=== PATIENT | male | born 1955 | race Caucasian/White ===

== ENCOUNTER 2020-02-28 11:44 | Emergency (ER) | payer OTHER ==
[~2020-02-28] VITALS: Ht 187 cm; Wt 100.0 kg
--- NOTE | 2020-02-28 11:50 | ED Psychosocial ---
General Stated Complaint: SYNCOPE Source: patient History of Present Illness Date Seen by Provider: Feb 28, 2020 Time Seen by Provider: 11:50 Initial Comments 64-year-old male who was at the [facility]. Patient was at the [facility] and some labs drawn and get a flu shot. While getting his flu shot he had what appeared to be a vasovagal episode with syncope. EMS was called and brought him in with some IV fluids. Upon arrival patient then states this states that he is depressed, not eating or drinking well and is suicidal. Patient reports that he called the suicide hotline at the [facility] this morning. That he wants to go summary help. That he's been having depression and suicidal thoughts for years. When asked about a plan patient states he has a plan but won't expand on it. Patient denied any other physical complaints. Allergies and Home Medications Patient Home Medication List Home Medication List Reviewed: Yes Review of Systems Constitutional: No chills, No fever Respiratory: no symptoms reported Cardiovascular: no symptoms reported Gastrointestinal: no symptoms reported Genitourinary: no symptoms reported Musculoskeletal: no symptoms reported Skin: no symptoms reported Psychiatric/Neurological: See HPI Past Yjrgfnq-Bgqjos-Hhgnqi Hx Past Med/Social Hx: Reviewed Nursing Past Med/Soc Hx Physical Exam Vital Signs - First Documented 02/28/20 12:29 Temp 36.2 Pulse 76 Resp 18 B/P (MAP) 165/102 (123) Pulse Ox 98 O2 Delivery Room Air Capillary Refill : Height, Weight, BMI Height: '" Weight: lbs. oz. kg; BMI Method: General Appearance: no apparent distress HEENT: PERRL/EOMI, pharynx normal Neck: full range of motion, supple Respiratory: lungs clear, normal breath sounds, no respiratory distress, no accessory muscle use Cardiovascular: normal peripheral pulses, regular rate, rhythm Peripheral Pulses: 2+ Radial Pulses (R), 2+ Radial Pulses (L) Gastrointestinal: non tender, soft Neurologic/Psychiatric: alert, oriented x 3, depressed affect Appearance/Memory: appropriate appearance Behavior/Eye Contact: decreased rate of speech, other (withdrawn and depressed) Thoughts/Hallucinations: other (patient stating suicidal ideations) Skin: normal color, warm/dry Progress/Results/Core Measures Results/Orders Lab Results Laboratory Tests Test 02/28/20 11:53 02/28/20 11:55 Range/Units White Blood Count 11.1 H 4.3-11.0 10^3/uL Red Blood Count 3.69 L 4.35-5.85 10^6/uL Hemoglobin 8.2 L 13.3-17.7 G/DL Hematocrit 27 L 40-54 % Mean Corpuscular Volume 74 L 80-99 FL Mean Corpuscular Hemoglobin 22 L 25-34 PG Mean Corpuscular Hemoglobin Concent 30 L 32-36 G/DL Red Cell Distribution Width 16.2 H 10.0-14.5 % Platelet Count 283 130-400 10^3/uL Mean Platelet Volume 10.6 H 7.4-10.4 FL Immature Granulocyte % (Auto) 0 % Neutrophils (%) (Auto) 69 42-75 % Lymphocytes (%) (Auto) 16 12-44 % Monocytes (%) (Auto) 12 0-12 % Eosinophils (%) (Auto) 3 0-10 % Basophils (%) (Auto) 1 0-10 % Neutrophils # (Auto) 7.7 1.8-7.8 X 10^3 Lymphocytes # (Auto) 1.8 1.0-4.0 X 10^3 Monocytes # (Auto) 1.3 H 0.0-1.0 X 10^3 Eosinophils # (Auto) 0.3 0.0-0.3 10^3/uL Basophils # (Auto) 0.1 0.0-0.1 10^3/uL Immature Granulocyte # (Auto) 0.0 0.0-0.1 10^3/uL Sodium Level 137 135-145 MMOL/L Potassium Level 3.3 L 3.6-5.0 MMOL/L Chloride Level 102 98-107 MMOL/L Carbon Dioxide Level 21 21-32 MMOL/L Anion Gap 14 5-14 MMOL/L Blood Urea Nitrogen 17 7-18 MG/DL Creatinine 1.64 H 0.60-1.30 MG/DL Estimat Glomerular Filtration Rate 43 BUN/Creatinine Ratio 10 Glucose Level 136 H 70-105 MG/DL Calcium Level 8.4 L 8.5-10.1 MG/DL Corrected Calcium 8.6 8.5-10.1 MG/DL Total Bilirubin 0.3 0.1-1.0 MG/DL Aspartate Amino Transf (AST/SGOT) 9 5-34 U/L Alanine Aminotransferase (ALT/SGPT) 9 0-55 U/L Alkaline Phosphatase 56 40-136 U/L Total Protein 6.1 L 6.4-8.2 GM/DL Albumin 3.8 3.2-4.5 GM/DL Salicylates Level < 5.0 L 5.0-20.0 MG/DL Acetaminophen Level 14 10-30 UG/ML Serum Alcohol 57 H <10 MG/DL Urine Color YELLOW Urine Clarity CLEAR Urine pH 5.5 5-9 Urine Specific [place] 1.025 H 1.016-1.022 Urine Protein NEGATIVE NEGATIVE Urine Glucose (UA) NEGATIVE NEGATIVE Urine Ketones NEGATIVE NEGATIVE Urine Nitrite NEGATIVE NEGATIVE Urine Bilirubin NEGATIVE NEGATIVE Urine Urobilinogen 0.2 < = 1.0 MG/DL Urine Leukocyte Esterase NEGATIVE NEGATIVE Urine RBC (Auto) NEGATIVE NEGATIVE Urine RBC NONE /HPF Urine WBC NONE /HPF Urine Squamous Epithelial Cells RARE /HPF Urine Crystals NONE /LPF Urine Bacteria NONE /HPF Urine Casts NONE /LPF Urine Mucus NEGATIVE /LPF Urine Culture Indicated NO Urine Opiates Screen NEGATIVE NEGATIVE Urine Oxycodone Screen NEGATIVE NEGATIVE Urine Methadone Screen NEGATIVE NEGATIVE Urine Propoxyphene Screen NEGATIVE NEGATIVE Urine Barbiturates Screen NEGATIVE NEGATIVE Ur Tricyclic Antidepressants Screen NEGATIVE NEGATIVE Urine Phencyclidine Screen NEGATIVE NEGATIVE Urine Amphetamines Screen NEGATIVE NEGATIVE Urine Methamphetamines Screen NEGATIVE NEGATIVE Urine Benzodiazepines Screen NEGATIVE NEGATIVE Urine Cocaine Screen NEGATIVE NEGATIVE Urine Cannabinoids Screen POSITIVE H NEGATIVE My Orders Orders - TIPTON,DMITRIY L DO Ua Culture If Indicated (02/28/20 11:50) Cbc With Automated Diff (02/28/20 11:50) Comprehensive Metabolic Panel (02/28/20 11:50) Alcohol (02/28/20 11:50) Drug Screen Stat (Urine) (02/28/20 11:50) Acetaminophen (02/28/20 11:50) Salicylate (02/28/20 11:50) Ekg Tracing (02/28/20 11:50) Ed Iv/Invasive Line Start (02/28/20 11:50) Monitor-Rhythm Ecg Trace Only (02/28/20 11:50) Bh Status Checks/Observation Q15M (02/28/20 11:50) Ed Iv/Invasive Line Start (02/28/20 11:50) Chest 1 View Ap/Pa Only (02/28/20 11:54) Vital Signs/I&O 02/28/20 12:29 Temp 36.2 Pulse 76 Resp 18 B/P (MAP) 165/102 (123) Pulse Ox 98 O2 Delivery Room Air Progress Progress Note : Time: 14:45 Progress Note Patient was seen and evaluated by mental health. Patient was unaware that there were outpatient resources available. Patient and mental health provider developed a safety plan along with outpatient resources and appointments. Patient stable and will be discharged home. Patient's depression and thoughts of been going on and off for quite some time at least the last couple years so there is no acute plan or findings at this time. Initial ECG Impression Date: Feb 28, 2020 Initial ECG Impression Time: 11:56 Initial ECG Rate: 57 Initial ECG Rhythm: Normal Sinus Initial ECG Impression: Nonspecific Changes Departure Impression Primary Impression: Depression Qualified Codes: F33.9 - Major depressive disorder, recurrent, unspecified Additional Impression: Suicidal thoughts Disposition: 01 HOME, SELF-CARE Condition: Stable Departure-Patient Inst. Referrals: NO,LOCAL PHYSICIAN (PCP/Family) Primary Care Physician Patient Instructions: Depression, Suicide Prevention Add. Discharge Instructions: Please follow the plan you made with behavioral health for outpatient resources and therapy. Return to the ER as needed DMITRIY TIPTON DO Feb 28, 2020 11:50
[2020-02-28 12:04] LABS: BASOPHILS # (AUTO) 0.1 10^3/uL (0.0-0.1); BASOPHILS % (AUTO) 1 % (0-10); EOSINOPHILS # (AUTO) 0.3 10^3/uL (0.0-0.3); EOSINOPHILS % (AUTO) 3 % (0-10); HEMATOCRIT 27 % (40-54); HEMOGLOBIN 8.2 G/DL (13.3-17.7); LYMPHOCYTES # (AUTO) 1.8 X 10^3 (1.0-4.0); LYMPHOCYTES % (AUTO) 16 % (12-44); MEAN CORPUSCULAR HEMOGLOBIN 22 PG (25-34); MEAN CORPUSCULAR HGB CONC 30 G/DL (32-36); MEAN CORPUSCULAR VOLUME 74 FL (80-99); MEAN PLATELET VOLUME 10.6 FL (7.4-10.4); MONOCYTES # (AUTO) 1.3 X 10^3 (0.0-1.0); MONOCYTES % (AUTO) 12 % (0-12); NEUTROPHILS # (AUTO) 7.7 X 10^3 (1.8-7.8); NEUTROPHILS % (AUTO) 69 % (42-75); PLATELET COUNT 283 10^3/uL (130-400); WHITE BLOOD COUNT 11.1 10^3/uL (4.3-11.0)
[2020-02-28 12:25] LABS: BUN/CREATININE RATIO 10; CARBON DIOXIDE 21 MMOL/L (21-32); CHLORIDE 102 MMOL/L (98-107); CREATININE SERUM 1.64 MG/DL (0.60-1.30); GFR ESTIMATED 43; POTASSIUM 3.3 MMOL/L (3.6-5.0); SODIUM 137 MMOL/L (135-145)
[2020-02-28 12:26] LABS: ACETAMINOPHEN 14 UG/ML (10-30); ALANINE AMINOTRANSFERASE 9 U/L (0-55); ALBUMIN 3.8 GM/DL (3.2-4.5); ALKALINE PHOSPHATASE 56 U/L (40-136); BILIRUBIN,TOTAL 0.3 MG/DL (0.1-1.0); CALCIUM 8.4 MG/DL (8.5-10.1); GLUCOSE 136 MG/DL (70-105); SALICYLATE < 5.0 MG/DL (5.0-20.0); TOTAL PROTEIN 6.1 GM/DL (6.4-8.2)
[2020-02-28 12:51] LABS: BILIRUBIN,URINE NEGATIVE (NEGATIVE); CLARITY,URINE CLEAR; COLOR,URINE YELLOW; GLUCOSE, URINE (UA) NEGATIVE (NEGATIVE); KETONES,URINE NEGATIVE (NEGATIVE); LEUKOCYTE ESTERASE ,URINE NEGATIVE (NEGATIVE); NITRITE,URINE NEGATIVE (NEGATIVE); PH,URINE 5.5 (5-9); PROTEIN,URINE NEGATIVE (NEGATIVE); SQUAMOUS EPITHELIAL CELL,UR RARE /HPF
--- NOTE | 2020-02-28 12:58 | Diagnostic Imaging Report ---
EXAMINATION: Chest 1 view HISTORY: Syncope. COMPARISON: None available. FINDINGS: Heart size and pulmonary vasculature are normal. The lungs are clear without consolidation, pleural effusion, or pneumothorax. The osseous structures are intact. There is likely a moderate hiatal hernia overlying the central mediastinum. IMPRESSION: 1. No acute radiographic abnormality in the chest. 2. Hiatal hernia. Dictated by: Dictated on workstation # [id number]
[2020-02-28 13:03] LABS: AMPHETAMINE SCREEN, URINE NEGATIVE (NEGATIVE); BARBITURATE SCREEN URINE NEGATIVE (NEGATIVE); BENZODIAZEPINES SCREEN URINE NEGATIVE (NEGATIVE); CANNABINOID SCREEN, URINE POSITIVE (NEGATIVE); COCAINE SCREEN URINE NEGATIVE (NEGATIVE); METHADONE STAT NEGATIVE (NEGATIVE); METHAMPHETAMINE SCREEN URINE S NEGATIVE (NEGATIVE); OPIATE SCREEN URINE NEGATIVE (NEGATIVE); OXYCODONE STAT NEGATIVE (NEGATIVE); PROPOXYPHENE STAT NEGATIVE (NEGATIVE); TRICYCLIC ANTIDEPRESSANTS SCRE NEGATIVE (NEGATIVE)
--- NOTE | 2020-02-28 13:05 | NUR ---
MELONIE CALLED AT THIS TIME.
--- NOTE | 2020-02-28 13:33 | NUR ---
CECILIA FROM [facility] ON ZOOM MEETING AT THIS TIME WITH PTMeir
--- NOTE | 2020-02-28 14:45 | NUR ---
PER CECILIA WILHELM THE PT HAS AGREED UPON GOING HOME ON A SAFETY PLAN AND DOING OUTPATIENT CARE.
[2020-02-28 14:48] VITALS: BP 128/62
== END 2020-02-28 15:25 | disposition home or self-care (01) ==
LOC: EDUNIT# 11:44 → ER FS 11:46
DX: F32.9 Major depressive disorder, single episode, unspecified (principal); R45.851 Suicidal ideations
CPT/HCPCS: 36415; 71045; 80053; 80306; 81000; 85025; 93005; 93041; 99284; G0480 ×3; 80320; 80329

== ENCOUNTER 2021-01-08 19:01 | Day surgery (SDC) | payer OTHER ==
[~2021-01-08] VITALS: Ht 182.8 cm; Wt 90.3 kg
[2021-01-08 19:40] LABS: WHITE BLOOD COUNT 5.7 10^3/uL (4.3-11.0)
[2021-01-08 19:41] LABS: MEAN CORPUSCULAR HEMOGLOBIN 20 pg (25-34); MEAN CORPUSCULAR HGB CONC 28 g/dL (32-36); MEAN CORPUSCULAR VOLUME 70 fL (80-99); PLATELET COUNT 371 10^3/uL (130-400)
--- NOTE | 2021-01-08 19:41 | ED Abdominal Pain ---
General Chief Complaint: Rect Problems Stated Complaint: LOW BLOOD COUNT Source of Information: Patient, Family Exam Limitations: No Limitations History of Present Illness Date Seen by Provider: Jan 08, 2021 Time Seen by Provider: 19:25 Initial Comments 65-year-old male presents with concern of low blood count. Patient was called by his PCP today with hemoglobin of 6.4. He admits to having intermittent blood in his stool for the past 1 year, which got worse about 3 months ago where he had a lot of bleeding in a short amount of time. He has not sought medical care until now, admittedly. His last blood work was in October and he does not know the results. Medical care at the [place] [facility]. Denies any significant past medical history or taking any blood thinners. Denies abdominal pain, nausea vomiting. When he does have bleeding it is bright red and occasionally with clots, particular 3 months ago. Allergies and Home Medications Allergies Coded Allergies: No Known Drug Allergies (Unverified , 01/08/21) Patient Home Medication List Home Medication List Reviewed: Yes Review of Systems Review of Systems Constitutional: No fever; malaise, weakness EENTM: No Symptoms Reported Respiratory: Denies Cough; SOA With Exertion Cardiovascular: Denies Chest Pain, Denies Edema; Lightheadedness; Denies Palpitations Gastrointestinal: See HPI; Denies Abdominal Pain, Denies Constipated, Denies Diarrhea, Denies Poor Fluid Intake; Rectal Bleeding Musculoskeletal: No back pain, No joint pain Skin: change in color (pale) Psychiatric/Neurological: Denies Numbness, Denies Paresthesia; Weakness Past Trmmmol-Qtdjjc-Qliojx Hx Patient Social History Tobacco Use?: No Seasonal Allergies Seasonal Allergies: No Past Medical History Surgeries: Yes Orthopedic Respiratory: No Cardiac: Yes Hypertension Neurological: No Genitourinary: No Gastrointestinal: No Musculoskeletal: No Endocrine: No HEENT: No Cancer: No Psychosocial: Yes Anxiety, Depression Integumentary: No Blood Disorders: No Physical Exam Vital Signs Vital Signs - First Documented 01/08/21 01/08/21 19:05 21:24 Temp 36.6 Pulse 86 Resp 16 B/P (MAP) 137/72 (93) Pulse Ox 100 O2 Delivery Room Air Capillary Refill : Height/Weight/BMI Height: '" Weight: lbs. oz. kg; 28.00 BMI Method: General Appearance: WD/WN, no apparent distress HEENT: PERRL/EOMI, normal ENT inspection, pale conjunctivae (R), pale conjunctivae (L) Neck: non-tender, supple Respiratory: chest non-tender, lungs clear, normal breath sounds, no respiratory distress, no accessory muscle use Cardiovascular: regular rate, rhythm, no edema, no JVD Gastrointestinal: normal bowel sounds, non tender, soft Extremities: normal range of motion, non-tender, no pedal edema Neurologic/Psychiatric: no motor/sensory deficits, alert, normal mood/affect Skin: other (pale) Progress/Results/Core Measures Results/Orders Lab Results Laboratory Tests Test 01/08/21 19:21 Range/Units White Blood Count 5.7 4.3-11.0 10^3/uL Red Blood Count 3.14 L 4.30-5.52 10^6/uL Hemoglobin 6.2 *L 13.3-17.7 g/dL Hematocrit 22 L 40-54 % Mean Corpuscular Volume 70 L 80-99 fL Mean Corpuscular Hemoglobin 20 L 25-34 pg Mean Corpuscular Hemoglobin Concent 28 L 32-36 g/dL Red Cell Distribution Width 17.7 H 10.0-14.5 % Platelet Count 371 130-400 10^3/uL Mean Platelet Volume 10.6 9.0-12.2 fL Immature Granulocyte % (Auto) 0 % Neutrophils (%) (Auto) 62 42-75 % Lymphocytes (%) (Auto) 25 12-44 % Monocytes (%) (Auto) 8 0-12 % Eosinophils (%) (Auto) 4 0-10 % Basophils (%) (Auto) 1 0-10 % Neutrophils # (Auto) 3.5 1.8-7.8 X 10^3 Lymphocytes # (Auto) 1.5 1.0-4.0 X 10^3 Monocytes # (Auto) 0.5 0.0-1.0 X 10^3 Eosinophils # (Auto) 0.2 0.0-0.3 10^3/uL Basophils # (Auto) 0.1 0.0-0.1 10^3/uL Immature Granulocyte # (Auto) 0.0 0.0-0.1 10^3/uL Sodium Level 137 135-145 MMOL/L Potassium Level 3.4 L 3.6-5.0 MMOL/L Chloride Level 105 98-107 MMOL/L Carbon Dioxide Level 21 21-32 MMOL/L Anion Gap 11 5-14 MMOL/L Blood Urea Nitrogen 21 H 7-18 MG/DL Creatinine 1.82 H 0.60-1.30 MG/DL Estimat Glomerular Filtration Rate 38 BUN/Creatinine Ratio 12 Glucose Level 134 H 70-105 MG/DL Calcium Level 8.2 L 8.5-10.1 MG/DL Corrected Calcium 8.3 L 8.5-10.1 MG/DL Total Bilirubin 0.2 0.1-1.0 MG/DL Aspartate Amino Transf (AST/SGOT) 14 5-34 U/L Alanine Aminotransferase (ALT/SGPT) 10 0-55 U/L Alkaline Phosphatase 72 40-136 U/L Total Protein 6.6 6.4-8.2 GM/DL Albumin 3.9 3.2-4.5 GM/DL My Orders Orders - TURNERVENSTADRIANNA DOS SANTOS DO Ed Iv/Invasive Line Start (01/08/21 19:29) Cbc With Automated Diff (01/08/21 19:29) Comprehensive Metabolic Panel (01/08/21 19:29) Vital Signs/I&O 01/08/21 01/08/21 19:05 21:24 Temp 36.6 36.6 Pulse 86 Resp 16 84 B/P (MAP) 137/72 (93) 154/82 Pulse Ox 100 O2 Delivery Room Air Room Air Progress Progress Note : Progress Note patient with stable vitals and in no distress, but symptomatic w extreme fatigue....reason for seeking care today combined with results of critical lab values. Departure Communication (Admissions) Time/Spoke to Admitting Phy: 19:50 Called and spoke to Dr. Clark regarding patient presentation, past medical history and intermittent lower GI bleeding for 1 year without seeking medical attention until today Time/Spoke to Consulting Phy: 19:[address] Atkins regarding patient HPI, symptomatic anemia and lower GI bleed. Plans to keep patient on clear liquids, bowel prep tomorrow with planned colonoscopy in 2-day Impression Primary Impression: Symptomatic anemia Additional Impressions: Lower GI bleeding Renal insufficiency Disposition: 30 STILL A PATIENT Condition: Stable Admissions Decision to Admit Reason: Admit from ER (General) Decision to Admit/Date: Jan 08, 2021 Time/Decision to Admit Time: 19:25 Departure-Patient Inst. Referrals: GREGORIO COLLAZO (PCP/Family) Primary Care Physician ADRIANNA DUKES DO Jan 08, 2021 19:41
[2021-01-08 19:44] LABS: HEMOGLOBIN 6.2 g/dL (13.3-17.7)
[2021-01-08 19:45] LABS: BASOPHILS # (AUTO) 0.1 10^3/uL (0.0-0.1); BASOPHILS % (AUTO) 1 % (0-10); EOSINOPHILS # (AUTO) 0.2 10^3/uL (0.0-0.3); EOSINOPHILS % (AUTO) 4 % (0-10); HEMATOCRIT 22 % (40-54); LYMPHOCYTES # (AUTO) 1.5 X 10^3 (1.0-4.0); LYMPHOCYTES % (AUTO) 25 % (12-44); MEAN PLATELET VOLUME 10.6 fL (9.0-12.2); MONOCYTES # (AUTO) 0.5 X 10^3 (0.0-1.0); MONOCYTES % (AUTO) 8 % (0-12); NEUTROPHILS # (AUTO) 3.5 X 10^3 (1.8-7.8); NEUTROPHILS % (AUTO) 62 % (42-75)
[2021-01-08 19:50] LABS: CREATININE SERUM 1.82 MG/DL (0.60-1.30); POTASSIUM 3.4 MMOL/L (3.6-5.0)
[2021-01-08 19:51] LABS: ALBUMIN 3.9 GM/DL (3.2-4.5); BILIRUBIN,TOTAL 0.2 MG/DL (0.1-1.0); CALCIUM 8.2 MG/DL (8.5-10.1); TOTAL PROTEIN 6.6 GM/DL (6.4-8.2)
[2021-01-08] MEDS ORDERED: NS IV 500 ML 500 ML IV SCH (22:30)
[2021-01-09] VITALS (12 sets, daily range): BP systolic 160–185; BP diastolic 81–96
[2021-01-09 07:40] LABS: BASOPHILS # (AUTO) 0.1 10^3/uL (0.0-0.1); BASOPHILS % (AUTO) 1 % (0-10); EOSINOPHILS # (AUTO) 0.3 10^3/uL (0.0-0.3); EOSINOPHILS % (AUTO) 4 % (0-10); HEMATOCRIT 27 % (40-54); HEMOGLOBIN 7.9 g/dL (13.3-17.7); LYMPHOCYTES # (AUTO) 1.4 10^3/uL (1.0-4.0); LYMPHOCYTES % (AUTO) 20 % (12-44); MEAN CORPUSCULAR HEMOGLOBIN 21 pg (25-34); MEAN CORPUSCULAR HGB CONC 29 g/dL (32-36); MEAN CORPUSCULAR VOLUME 72 fL (80-99); MEAN PLATELET VOLUME 10.3 fL (9.0-12.2); MONOCYTES # (AUTO) 0.8 10^3/uL (0.0-1.0); MONOCYTES % (AUTO) 12 % (0-12); NEUTROPHILS # (AUTO) 4.2 10^3/uL (1.8-7.8); NEUTROPHILS % (AUTO) 63 % (42-75); PLATELET COUNT 366 10^3/uL (130-400); WHITE BLOOD COUNT 6.7 10^3/uL (4.3-11.0)
[2021-01-09 07:46] LABS: CALCIUM 8.2 MG/DL (8.5-10.1)
[2021-01-09 07:51] LABS: CREATININE SERUM 1.51 MG/DL (0.60-1.30)
--- NOTE | 2021-01-09 08:02 | Consultation - Surgery ---
MARGARETH CORREA MED STUDENT 01/09/21 0802: History of Present Illness History of Present Illness Patient Consulted On(yoel/time) 01/09/21 08:01 Date Seen by Provider: Jan 09, 2021 Time Seen by Provider: 08:00 History of Present Illness surgery consult for: symptomatic anemia and GI bleed HPI per ED: 65-year-old male presents with concern of low blood count. Patient was called by his PCP today with hemoglobin of 6.4. He admits to having intermittent blood in his stool for the past 1 year, which got worse about 3 months ago where he had a lot of bleeding in a short amount of time. He has not sought medical care until now, admittedly. His last blood work was in October and he does not know the results. Medical care at the [facility]. Denies any significant past medical history or taking any blood thinners. Denies abdominal pain, nausea vomiting. When he does have bleeding it is bright red and occasionally with clots, particular 3 months ago. today: Patient states he's been passing blood on and off for the past couple of years usually a couple of weeks between episodes. About a month ago, he noticed he had bloody diarrhea all weekend with every BM, about 6-8BM total. He states it resolved spontaneously. He saw a clinical office technician at [facility] who did some blood work and told the patient to come to the ED last night due to low Hgb. He was given 2 units blood in the ED last night. Before the transfusion, he complained of dizziness, lightheaded, SOB, fatigue, weakness, chills, blurred vision, and heart palpitations but has no symptoms this morning. He denies abdominal pain. His last bloody episode was a week and a half ago. He denies ever having previous colonoscopies. He denies seeing any physicians for his bleeding condition. He's had low iron before on labs and was given iron pills but was non compliant with medication because he "felt stubborn" and wouldn't take it. He last ate yesterday at 10AM. He is ambulatory and has burning with urination. Allergies and Home Medications Allergies Coded Allergies: No Known Drug Allergies (Unverified , 01/08/21) Past Cgmirgd-Dgjecl-Wcnssi Hx Patient Social History Drug of Choice: MARIJUANA IN PAST WEEK Smoking Status: Former Smoker (2-3 cigarettes per day for 10 yrs) Type Used: Cigarettes Recent Hopitalizations: No Alcohol Use?: Yes Substance type: Marijuana Have you traveled recently?: No Seasonal Allergies Seasonal Allergies: No Surgeries History of Surgeries: Yes Surgeries: Orthopedic (fingers, wrist, tibia, clavical (R), forearm), Vasectomy Respiratory History of Respiratory Disorde: No Cardiovascular History of Cardiac Disorders: Yes Cardiac Disorders: Hypertension Neurological History of Neurological Disord: No Genitourinary History of Genitourinary Disor: No Gastrointestinal History of Gastrointestinal Di: No Musculoskeletal History of Musculoskeletal Dis: No Endocrine History of Endocrine Disorders: No HEENT History of HEENT Disorders: No Cancer History of Cancer: No Psychosocial History of Psychiatric Problem: Yes Behavioral Health Disorders: Anxiety, Depression (previous hx of suicidal ideation w/ plan. no previous attempts. last episode was 8 mo ago) Integumentary History of Skin or Integumenta: No Blood Transfusions History of Blood Disorders: No Review of Systems-General Constitutional: No chills, No diaphoresis, No dizziness, No fever; malaise, weakness EENTM: blurred vision; No hearing loss, No ear pain Respiratory: No cough, No dyspnea on exertion; short of breath Cardiovascular: No chest pain, No palpitations Gastrointestinal: No abdominal pain; diarrhea, other (bright red blood per rectum) Genitourinary: dysuria; No frequency Musculoskeletal: No back pain; muscle cramps Skin: No change in color, No dryness Psychiatric/Neurological: Anxiety, Headache; Denies Numbness, Denies Paresthesia Physical Exam-General Problems Physical Exam Vital Signs Vital Signs - First Documented 01/08/21 01/08/21 19:05 21:24 Temp 36.6 Pulse 86 Resp 16 B/P (MAP) 137/72 (93) Pulse Ox 100 O2 Delivery Room Air Capillary Refill : Less Than 3 Seconds General Appearance: WD/WN, no apparent distress Eyes: Bilateral Eye PERRL, Bilateral Eye EOMI HEENT: PERRL/EOMI Neck: non-tender, full range of motion, supple Respiratory: chest non-tender, lungs clear, normal breath sounds, no respiratory distress, no accessory muscle use Cardiovascular: regular rate, rhythm, no murmur Gastrointestinal: normal bowel sounds, non tender, soft Extremities: non-tender, normal inspection, no pedal edema, no calf tenderness Neurologic/Psychiatric: no motor/sensory deficits, alert, oriented x 3 Skin: normal color, warm/dry Data Review Labs Laboratory Tests 01/08/21 19:21: White Blood Count 5.7, Red Blood Count 3.14L, Hemoglobin 6.2*L, Hematocrit 22L, Mean Corpuscular Volume 70L, Mean Corpuscular Hemoglobin 20L, Mean Corpuscular Hemoglobin Concent 28L, Red Cell Distribution Width 17.7H, Platelet Count 371, Mean Platelet Volume 10.6, Immature Granulocyte % (Auto) 0, Neutrophils (%) (Auto) 62, Lymphocytes (%) (Auto) 25, Monocytes (%) (Auto) 8, Eosinophils (%) (Auto) 4, Basophils (%) (Auto) 1, Neutrophils # (Auto) 3.5, Lymphocytes # (Auto) 1.5, Monocytes # (Auto) 0.5, Eosinophils # (Auto) 0.2, Basophils # (Auto) 0.1, Immature Granulocyte # (Auto) 0.0, Sodium Level 137, Potassium Level 3.4L, Chloride Level 105, Carbon Dioxide Level 21, Anion Gap 11, Blood Urea Nitrogen 21H, Creatinine 1.82H, Estimat Glomerular Filtration Rate 38, BUN/Creatinine Ratio 12, Glucose Level 134H, Calcium Level 8.2L, Corrected Calcium 8.3L, Total Bilirubin 0.2, Aspartate Amino Transf (AST/SGOT) 14, Alanine Aminotransferase (ALT/SGPT) 10, Alkaline Phosphatase 72, Total Protein 6.6, Albumin 3.9 01/09/21 07:25: White Blood Count 6.7, Red Blood Count 3.80L, Hemoglobin 7.9#L, Hematocrit 27L, Mean Corpuscular Volume 72L, Mean Corpuscular Hemoglobin 21L, Mean Corpuscular Hemoglobin Concent 29L, Red Cell Distribution Width 17.8H, Platelet Count 366, Mean Platelet Volume 10.3, Immature Granulocyte % (Auto) 0, Neutrophils (%) (Auto) 63, Lymphocytes (%) (Auto) 20, Monocytes (%) (Auto) 12, Eosinophils (%) (Auto) 4, Basophils (%) (Auto) 1, Neutrophils # (Auto) 4.2, Lymphocytes # (Auto) 1.4, Monocytes # (Auto) 0.8, Eosinophils # (Auto) 0.3, Basophils # (Auto) 0.1, Immature Granulocyte # (Auto) 0.0, Sodium Level 135, Potassium Level 4.0, Chloride Level 107, Carbon Dioxide Level 20L, Anion Gap 8, Blood Urea Nitrogen 18, Creatinine 1.51H, Estimat Glomerular Filtration Rate 47, BUN/Creatinine Ratio 12, Glucose Level 89, Calcium Level 8.2L Assessment/Plan Assessment/Plan Assessment/Plan GI bleed anemia - s/p 2 units transfusion Plan is to do bowel prep today and colonoscopy tomorrow. Monitor Hgb, if below 7, transfuse. Discussed colonoscopy with patient, he is agreeable. Will obtain consent and discuss procedure and risks. JOSE ATKINS DO 01/09/21 1039: History of Present Illness History of Present Illness Time Seen by Provider: 09:37 History of Present Illness Pt states he hs been bleeding "for a while now". This is the first time he has felt weak and tired. Allergies and Home Medications Allergies Coded Allergies: No Known Drug Allergies (Unverified , 01/08/21) Patient Home Medication List Home Medication List Reviewed: Yes Past Ktccnlw-Tquoqs-Kvuwcz Hx Patient Social History Smoking Status: Former Smoker (2-3 cigarettes per day for 10 yrs) Type Used: Cigarettes Surgeries History of Surgeries: Yes Surgeries: Orthopedic (fingers, wrist, tibia, clavical (R), forearm), Vasectomy Respiratory History of Respiratory Disorde: No Cardiovascular History of Cardiac Disorders: Yes Cardiac Disorders: Hypertension Neurological History of Neurological Disord: No Genitourinary History of Genitourinary Disor: No Gastrointestinal History of Gastrointestinal Di: No Musculoskeletal History of Musculoskeletal Dis: No Endocrine History of Endocrine Disorders: No HEENT History of HEENT Disorders: No Loss of Vision: Denies Hearing Impairment: Denies Cancer History of Cancer: No Psychosocial History of Psychiatric Problem: Yes Behavioral Health Disorders: Anxiety, Depression (previous hx of suicidal ideation w/ plan. no previous attempts. last episode was 8 mo ago) Family Medical History Significant Family History: Diabetes (Denies parents had DM), Other Conditions/Hx Review of Systems-General Constitutional: No chills, No diaphoresis, No dizziness, No fever; malaise, weakness EENTM: blurred vision; No hearing loss, No ear pain Respiratory: short of breath Cardiovascular: No chest pain, No palpitations Gastrointestinal: diarrhea, other (bright red blood per rectum) Genitourinary: dysuria; No frequency Musculoskeletal: No back pain; muscle cramps Skin: No change in color, No dryness Psychiatric/Neurological: Anxiety, Headache; Denies Numbness, Denies Paresthesia Physical Exam-General Problems Physical Exam General Appearance: WD/WN, no apparent distress Eyes: Bilateral Eye PERRL, Bilateral Eye EOMI HEENT: pharynx normal; No scleral icterus (R), No scleral icterus (L) Neck: non-tender, full range of motion, supple Respiratory: chest non-tender, lungs clear, normal breath sounds, no respiratory distress, no accessory muscle use Cardiovascular: regular rate, rhythm, no murmur Gastrointestinal: normal bowel sounds, non tender, soft, no organomegaly Rectal: deferred Extremities: non-tender, normal inspection, no pedal edema, no calf tenderness Neurologic/Psychiatric: no motor/sensory deficits, alert, oriented x 3 Skin: normal color, warm/dry Lymphatic: no adenopathy (neck, axilla or groin) Assessment/Plan Assessment/Plan Assessment/Plan GI bleed anemia - s/p 2 units transfusion Plan is to do bowel prep today and colonoscopy tomorrow. Monitor Hgb, if below 7, transfuse. Discussed colonoscopy with patient, he is agreeable. Will obtain consent and discuss procedure and risks Supervisory-Addendum Brief Verification & Attestation Participated in pt care: history, MDM, physical Personally performed: exam, history, MDM, supervision of care Care discussed with: Medical Student Procedures: n/a Verification and Attestation of Medical Student E/M Service A medical student performed and documented this service. I then reviewed and verified all information documented by the medical student and made modifications to such information, when appropriate. I personally performed a physical exam, medical decision making and then discussed any differences between the notes and made revisions as necessary to create one note. Jose Atkins , 01/09/21 , 10:38 MARGARETH CORREA MED STUDENT Jan 09, 2021 08:02 JOSE ATKINS DO Jan 09, 2021 10:39
[2021-01-09] MEDS ORDERED: TRZ50T PO (11:45)
[2021-01-09] MEDS ORDERED: CYAN-23 PO (11:45)
[2021-01-09] MEDS ORDERED: CITA20TA12 PO (11:45)
[2021-01-09] MEDS ORDERED: ASCO500T17 PO (11:45)
[2021-01-09] MEDS ORDERED: FERR324T4 PO (11:45)
[2021-01-09] MEDS ORDERED: ASPI-1238 PO (11:45)
[2021-01-09] MEDS ORDERED: LISI20TA26 PO (11:45)
[2021-01-09] MEDS ORDERED: MULT-166 PO (11:45)
[2021-01-09] MEDS ORDERED: CHOL20003 PO (11:45)
[2021-01-09] MEDS ORDERED: BISACODYL 5 MG (DULCOLAX) TABLET PO SCH ×2 (12:00→15:00)
--- NOTE | 2021-01-09 12:28 | History & Physical-Hospitalist ---
History of Present Illness HPI/Chief Complaint Bebo Viramontes is a 65-year-old male with past medical history of hypertension, iron deficiency anemia, who was found to have anemia on outpatient labs. He was instructed to go to the emergency room. He was found to have a hemoglobin of 6.2. He reports that he has been feeling lightheaded and dizzy. He reports feeling short of breath. He has been having intermittent blood in his stools for several months. He is supposed to be taking iron supplements but is not taking any of his medications. He has never had a colonoscopy. He denies fevers and chills. He is not feeling short of breath at this time. He is not having chest pain. He denies abdominal pain, nausea, vomiting, and diarrhea. He has not had any blood in his stools for about 10 days. Source: patient Exam Limitations: no limitations Date Seen 01/09/21 Time Seen by a Provider: 09:40 Attending Physician Mitra Clark Dana Arnp Referring Physician Date of Admission Jan 08, 2021 at 22:08 Home Medications & Allergies Home Medications Reviewed patient Home Medication Reconciliation performed by pharmacy medication reconciliations gameroom technician and/or nursing. Patients Allergies have been reviewed. Allergies Allergies Coded Allergies No Known Drug Allergies (Unverified01/08/21) Past Mlcvehk-Ybmtgo-Tyzunb Hx Patient Social History Tobacco Use?: No Smoking Status: Former Smoker (2-3 cigarettes per day for 10 yrs) Use of E-Cig and/or Vaping dev: No Substance use?: Yes Substance type: Marijuana Alcohol Use?: Yes Alcohol type: Hard Liquor Alcohol Frequency: Couple times a week Pt feels they are or have been: No Immunizations Up To Date First/Initial COVID19 Vaccinat: august 2020 Second COVID19 Vaccination Glenn: august 2020 Tetanus Booster (TDap): Unknown Seasonal Allergies Seasonal Allergies: No Current Status Advance Directives: No Communicates: Verbally Primary Language: Serbian Preferred Spoken Language: Serbian Is interpretation needed?: No Sensory deficits: Vision impairment Implanted or Applied Medical D: None Past Medical History Surgeries: Orthopedic (fingers, wrist, tibia, clavical (R), forearm), Vasectomy Hypertension Loss of Vision: Denies Hearing Impairment: Denies Anxiety, Depression (previous hx of suicidal ideation w/ plan. no previous attempts. last episode was 8 mo ago) Blood Disorders: No Family Medical History Diabetes (Denies parents had DM), Other Conditions/Hx Review of Systems Constitutional: dizziness, weakness EENTM: no symptoms reported Respiratory: short of breath Cardiovascular: no symptoms reported Gastrointestinal: other (Hematochezia) Genitourinary: no symptoms reported Musculoskeletal: no symptoms reported Skin: no symptoms reported Psychiatric/Neurological: No Symptoms Reported Physical Exam Physical Exam Vital Signs Vital Signs - First Documented 01/08/21 01/08/21 19:05 21:24 Temp 36.6 Pulse 86 Resp 16 B/P (MAP) 137/72 (93) Pulse Ox 100 O2 Delivery Room Air Capillary Refill : Less Than 3 Seconds Height, Weight, BMI Height: '" Weight: lbs. oz. kg; 27.02 BMI Method: General Appearance: No Apparent Distress, WD/WN HEENT: PERRL/EOMI, Pharynx Normal Neck: Normal Inspection, Supple Respiratory: Lungs Clear, Normal Breath Sounds, No Respiratory Distress Cardiovascular: Regular Rate, Rhythm, No Edema, No Murmur Gastrointestinal: Normal Bowel Sounds, Non Tender, Soft Extremity: Normal Inspection, Non Tender, No Pedal Edema Neurologic/Psychiatric: Alert, Oriented x3, No Motor/Sensory Deficits, Normal Mood/Affect Skin: Normal Color, Warm/Dry Results Results/Procedures Labs Laboratory Tests 01/08/21 19:21 01/09/21 07:25 Patient resulted labs reviewed. Assessment/Plan Admission Diagnosis Symptomatic anemia due to lower GI bleeding Admission Status: Observation Assessment and Plan Symptomatic anemia Lower GI bleeding Iron deficiency anemia Hgb 6.2 on arrival s/p 2 units PRBC Hgb improved to 7.9 Transfuse as needed to keep Hgb >7 No ongoing bleeding General surgery consulted, appreciate assistance Planning for colonoscopy prep today Colonoscopy scheduled [place] 01/10 HTN Begin Amlodipine Hydralazine as needed CKD3 Cr 1.5, monitor Avoid nephrotoxins as able DVT prophylaxis: held due to GI bleeding Diagnosis/Problems Diagnosis/Problems (1) Symptomatic anemia Status: Acute (2) Lower GI bleeding Status: Acute (3) HTN (hypertension) Status: Chronic Qualifiers: Hypertension type: primary hypertension Qualified Codes: I10 - Essential (primary) hypertension (4) CKD (chronic kidney disease), stage III Status: Chronic ARMANDO TINAJERO MD Jan 09, 2021 12:28
[2021-01-09] MEDS ORDERED: hydrALAZINE (APESOLINE) 20 MG/ML VIAL IV PRN (12:30)
[2021-01-09] MEDS ORDERED: amLODIPine 10 MG (NORVASC) TAB PO NR (12:30)
[2021-01-09] MEDS ORDERED: polyethylene glycoL Bowel Prep(MIRALAX) 238 GM PO SCH (18:00)
[2021-01-10] VITALS (10 sets, daily range): BP systolic 68–166; BP diastolic 35–93
[2021-01-10 07:30] LABS: HEMOGLOBIN 8.5 g/dL (13.3-17.7)
[2021-01-10 07:39] LABS: POTASSIUM 3.9 MMOL/L (3.6-5.0)
[2021-01-10 07:40] LABS: CALCIUM 8.8 MG/DL (8.5-10.1)
[2021-01-10 07:44] LABS: CREATININE SERUM 1.45 MG/DL (0.60-1.30)
--- NOTE | 2021-01-10 08:01 | Progress Note - Surgery ---
ALTHEA NIETO 01/10/21 0801: Subjective Date Seen by a Provider: Jan 10, 2021 Time Seen by a Provider: 07:20 Subjective/Events-last exam Patient reports that he had multiple bowel movements yesterday w/o any blood. He denies any abdominal pain, N/V, SOA, or sweats/chills over the last 24hrs. He h as been able to walk around without problems. Objective Exam Vital Signs Date Time Temp Pulse Resp B/P (MAP) Pulse Ox O2 Delivery O2 Flow Rate FiO2 01/10/21 04:00 35.1 74 20 166/93 (117) 100 Room Air 01/10/21 00:45 35.3 80 20 158/83 (108) 99 Room Air 01/09/21 20:00 36.6 83 20 178/96 (123) 100 Room Air 01/09/21 20:00 Room Air 01/09/21 15:58 37.0 78 16 168/87 (114) 98 Room Air 01/09/21 12:00 36.6 74 18 168/87 (114) 100 Room Air 01/09/21 08:00 36.9 71 20 168/83 (111) 98 Room Air 01/09/21 08:00 Room Air I & O 01/10/21 06:59 Intake Total 4220 ml Output Total 6 ml Balance 4214 ml Capillary Refill : Less Than 3 Seconds General Appearance: No Apparent Distress, WD/WN HEENT: PERRL/EOMI Neck: Normal Inspection, Supple Respiratory: Lungs Clear, Normal Breath Sounds, No Accessory Muscle Use, No Respiratory Distress Cardiovascular: Regular Rate, Rhythm, No Edema, No Murmur Gastrointestinal: normal bowel sounds, non tender, soft Extremity: Normal Inspection, Non Tender, No Pedal Edema Neurologic/Psychiatric: Alert, Oriented x3, Normal Mood/Affect Skin: Normal Color, Warm/Dry Results Lab Laboratory Tests 01/10/21 06:42: Hemoglobin 8.5L, Hematocrit 30L, Sodium Level 139, Potassium Level 3.9, Chloride Level 108H, Carbon Dioxide Level 21, Anion Gap 10, Blood Urea Nitrogen 10, Creatinine 1.45H, Estimat Glomerular Filtration Rate 49, BUN/Creatinine Ratio 7, Glucose Level 85, Calcium Level 8.8 Assessment/Plan Assessment/Plan Assessment/Plan GI bleed anemia - s/p 2 units transfusion Monitor Hgb, if below 7, transfuse. MARIA ALEJANDRA VELASQUEZ DO 01/10/21 1417: Subjective Subjective/Events-last exam Patient has no further bleeding per rectum. Patient tolerated prep. Patient feeling better today. He nausea vomiting fever sweats chills shortness of breath or chest pain at this time. Objective Exam General Appearance: No Apparent Distress, WD/WN HEENT: PERRL/EOMI Neck: Normal Inspection, Supple Respiratory: Chest Non Tender, No Accessory Muscle Use, No Respiratory Distress Cardiovascular: Regular Rate, Rhythm, No JVD Gastrointestinal: non tender, soft Extremity: Normal Inspection, Non Tender Neurologic/Psychiatric: Alert, Oriented x3, Normal Mood/Affect Skin: Warm/Dry, Pallor Lymphatic: No Adenopathy Assessment/Plan Assessment/Plan Assessment/Plan GI bleed lower, anemia Patient tolerated prep. For colonoscopy today for further evaluation. Supervisory-Addendum Brief Verification & Attestation Participated in pt care: history, MDM, physical Personally performed: exam, history, MDM, supervision of care Care discussed with: Medical Student Procedures: n/a Results interpretation: Verified all documentation Verification and Attestation of Medical Student E/M Service A medical student performed and documented this service in my presence. I reviewed and verified all information documented by the medical student and made modifications to such information, when appropriate. I personally performed the physical exam and medical decision making. Maria Alejandra Velasquez, Jan 10, 2021,08:16 ALTHEA NIETO Jan 10, 2021 08:01 MARIA ALEJANDRA VELASQUEZ DO Jan 10, 2021 14:17
[2021-01-10] MEDS ORDERED: amLODIPine 5 MG (NORVASC) TAB PO SCH (09:00)
[2021-01-10] MEDS ORDERED: LACTATED RINGERS 1,000 ML IV ONE (09:24)
[2021-01-10] MEDS ORDERED: MIDAZOLAM 2 MG/2 ML (VERSED) VIAL ONE (09:36)
[2021-01-10] MEDS ORDERED: PROPOFOL INJECTION 50 ML IV ONE ×2 (09:36→09:53)
[2021-01-10] MEDS ORDERED: LACTATED RINGERS 1,000 ML IV STA (09:55)
[2021-01-10] MEDS: lisINopril 20 MG (PRINIVIL) TABLET PO SCH ×3 (09:58→12:40)
[2021-01-10] MEDS: amLODIPine 10 MG (NORVASC) TAB PO SCH ×3 (09:58→12:40)
[2021-01-10] MEDS ORDERED: PHENYLEPHRINE 100 MCG/ML 10 ML (ANESTHESIA) SYR ONE (10:28)
[2021-01-10] MEDS ORDERED: LISI20TA26 PO (14:04)
[2021-01-10] MEDS ORDERED: AMLO-251 PO (14:04)
--- NOTE | 2021-01-10 14:10 | Discharge Summary ---
Discharge Summary Hospital Course Was the Problem List Reviewed?: Yes Problems/Dx: (1) Symptomatic anemia Status: Acute (2) Lower GI bleeding Status: Acute (3) HTN (hypertension) Status: Chronic Qualifiers: Qualified Codes: I10 - Essential (primary) hypertension (4) CKD (chronic kidney disease), stage III Status: Chronic (5) Rectal mass Status: Acute Hospital Course Date of Admission: Jan 08, 2021 at 22:08 Admission Diagnosis : Symptomatic anemia due to lower GI bleeding Family Physician/Provider: Meredith Camacho Date of Discharge: 01/10/21 Discharge Diagnosis: Rectal mass Hospital Course: Bebo Viramontes is a 65-year-old male with past medical history of hypertension, iron deficiency anemia, who was admitted with symptomatic anemia due to lower GI bleeding. He has been having issues with bleeding for several months. He underwent a colonoscopy which revealed a rectal mass. Biopsies were performed and were pending at the time of discharge. He will follow up with Dr. Velasquez in about a week to discuss the biopsy results. His course was compli cated by hypertension and his antihypertensive regimen was adjusted. He was discharged home in stable condition. Labs and Pending Lab Test: Laboratory Tests 01/10/21 06:42: Hemoglobin 8.5L, Hematocrit 30L, Sodium Level 139, Potassium Level 3.9, Chloride Level 108H, Carbon Dioxide Level 21, Anion Gap 10, Blood Urea Nitrogen 10, Creatinine 1.45H, Estimat Glomerular Filtration Rate 49, BUN/Creatinine Ratio 7, Glucose Level 85, Calcium Level 8.8 Home Meds Active Amlodipine Besylate 10 Mg Tablet 10 Mg PO DAILY 30 Days Lisinopril 20 Mg Tablet 20 Mg PO DAILY 30 Days Reported Vitamin B-12 (Cyanocobalamin (Vitamin B-12)) 1,000 Mcg Capsule 1,000 Mcg PO DAILY Aspirin EC (Aspirin) 81 Mg Tablet.dr 81 Mg PO DAILY Vitamin D3 (Cholecalciferol (Vitamin D3)) 50 Mcg Capsule 50 Mcg PO DAILY Trazodone HCl 50 Mg Tablet 50 Mg PO HS PRN Multivitamins with Minerals (Multivitamin with Minerals) 1 Each Tablet 1 Each PO DAILY Vitamin C (Ascorbic Acid) 500 Mg Tablet 500 Mg PO DAILY Ferrous Sulfate 324 Mg Tablet. 324 Mg PO DAILY Celexa (Citalopram Hydrobromide) 20 Mg Tablet 10 Mg PO DAILY TAKES OF A 20MG TAB Assessment/Pt Instructions Take medications as prescribed. Follow-up with Dr. Velasquez for your biopsy results. Return with worsening bleeding, lightheadedness, or if you feel like you are getting worse. Discharge Planning: <30 minutes discharge planning Discharge Instructions Discharge Diet: No Restrictions Activity as Tolerated: Yes Consultations General surgery Discharge Physical Examination Vital Signs Vital Signs Date Time Temp Pulse Resp B/P (MAP) Pulse Ox O2 Delivery O2 Flow Rate FiO2 01/10/21 12:32 36.0 60 16 157/92 (113) 100 Room Air 01/10/21 10:40 10 General Appearance: No Apparent Distress, WD/WN Respiratory: Lungs Clear, Normal Breath Sounds, No Respiratory Distress Cardiovascular: Regular Rate, Rhythm, No Edema, No Murmur Gastrointestinal: Normal Bowel Sounds, Non Tender, Soft Extremity: Normal Inspection, Non Tender, No Pedal Edema Skin: Warm/Dry, Pallor Neurologic/Psychiatric: Alert, Oriented x3, No Motor/Sensory Deficits, Normal Mood/Affect Allergies: Coded Allergies: No Known Drug Allergies (Unverified , 01/08/21) Discharge Summary Date of Admission Jan 08, 2021 at 22:08 Date of Discharge Discharge Date: Jan 10, 2021 Discharge Time: 14:09 Admission Diagnosis Symptomatic anemia due to lower GI bleeding Consults/Procedures Consulations General surgery Procedures Colonoscopy Discharge Diagnosis Rectal mass (1) Symptomatic anemia Status: Acute (2) Lower GI bleeding Status: Acute (3) HTN (hypertension) Status: Chronic Qualifiers: Qualified Codes: I10 - Essential (primary) hypertension (4) CKD (chronic kidney disease), stage III Status: Chronic (5) Rectal mass Status: Acute ARMANDO TINAJERO MD Jan 10, 2021 14:10
--- NOTE | 2021-01-10 14:16 | OPERATIVE REPORT ---
DATE OF SERVICE: 01/10/2021 PREOPERATIVE DIAGNOSES: Bright red blood per rectum, anemia. POSTOPERATIVE DIAGNOSES: Rectal polyp, rectosigmoid mass and splenic flexure polyp. PROCEDURE: Colonoscopy with snare polypectomy of splenic polyp. Cold biopsies of rectosigmoid mass with Nila inking and snare polypectomy, rectal polyp. SURGEON: Maria Alejandra Velasquez DO ANESTHESIA: Per STOCK LAYER. ESTIMATED BLOOD LOSS: Scant. COMPLICATIONS: None. INDICATIONS: The patient is a 65-year-old male who was having some bright red bleeding per rectum and was found to be anemic. He has never had colonoscopy performed. He understands risks and benefits of procedure and wished to proceed. Consent was signed in the chart. DESCRIPTION OF PROCEDURE: The patient was taken to endoscopy suite, placed in left lateral recumbent position. Timeout was performed. Digital rectal exam was performed. There were no palpable polyps, masses or ulcerations. Scope was inserted in the rectum and noting a rectal polyp. Scope was then continued to be advanced through the rectosigmoid junction, a large mass approximately 75% obstructing was present. The scope was able to be passed through this area without difficulty and continued to be advanced all the way to the cecum. Prep was adequate. Scope was then slowly retracted back. There were no polyps, masses or ulcerations in the cecum, ascending and transverse colon. In the splenic flexure, slightly larger polyp approximately 1 cm in diameter was present. Snare polypectomy was performed. This was able to be suctioned. The stalk was still bleeding. Therefore, an endoclip was placed on this area and hemostasis was achieved. The scope was then continued slowly retracted back. No polyps, masses or ulcerations within the remainder of the descending and sigmoid colon. At the rectosigmoid mass, multiple biopsies were obtained. Scope was then continuously retracted back, and snare polypectomy was performed on the other rectal polyp and obtained for specimen. Where the rectosigmoid mass was just distal to this area, a total of 3 mL of Nila ink was injected 1 mL in three different locations. Scope was retroflexed noting no other pathology. Scope was returned to its normal position, slowly withdrawn until completely removed, noting no other pathology. The patient tolerated procedure well without any complications, taken to recovery room in stable condition. RECOMMENDATIONS: The patient will follow up on biopsies. If do not demonstrate biopsies of cancer, would repeat biopsies. Further recommendations pending biopsy results. Job ID: [id number] DocumentID: [id number] Dictated Date: 01/10/2021 13:45:17 Business Editor Date: 01/10/2021 14:15:32 Dictated By: MARIA ALEJANDRA VELASQUEZ DO
--- NOTE | 2021-01-11 08:17 | Anesthesia-General Post-Op ---
MAC Patient Condition Mental Status/LOC: Same as Preop Cardiovascular: Satisfactory Nausea/Vomiting: Absent Respiratory: Satisfactory Pain: Controlled Complications: Absent Post Op Complications Complications None Follow Up Care/Instructions Patient Instructions None needed. Anesthesiology Discharge Order Discharge Order Patient is doing well, no complaints, stable vital signs, no apparent adverse anesthesia problems. No complications reported per nursing. TOM DONALD CRNA Jan 11, 2021 08:17
== END 2021-01-10 16:01 | disposition home or self-care (01) ==
LOC: EDUNIT# 19:01 → ER FS 19:02 → UNDOADMOB 22:08 → 4TH 22:08 → SDC 22:18 → UNDODISOB 01-10 16:01 → SDC 01-10 16:01
PROVIDERS: ATTEND Internal Medicine
DX: D12.7 Benign neoplasm of rectosigmoid junction (principal); D12.3 Benign neoplasm of transverse colon; I12.9 Hypertensive chronic kidney disease with stage 1 through stage 4 chronic kidney disease, or unspecified chronic kidney disease; N18.30 Chronic kidney disease, stage 3 unspecified; D50.0 Iron deficiency anemia secondary to blood loss (chronic); F32.9 Major depressive disorder, single episode, unspecified; F41.9 Anxiety disorder, unspecified; Z79.82 Long term (current) use of aspirin; Z79.899 Other long term (current) drug therapy; Z87.891 Personal history of nicotine dependence
CPT/HCPCS: 36415; 36430; 80048; 80053; 85014; 85018; 85025; 86850; 86900; 86901; 86920; G0378

== ENCOUNTER → 2021-01-23 | Outpatient (CLI) | payer OTHER ==
[~2021-01-23] VITALS: Ht 182.9 cm; Wt 93.1 kg
[~2021-01-23] MED LIST: AMLO-251 PO; ASCO500T17 PO; ASPI-1238 PO; CHOL20003 PO; CITA20TA12 PO; CITA20TA9 PO; CYAN-23 PO; FERR324T4 PO; LISI20TA26 PO; MULT-166 PO; TRZ50T PO
== END | disposition home or self-care (01) ==
LOC: PREOP 05:31
PROVIDERS: ATTEND Surgery
DX: Z01.818 Encounter for other preprocedural examination (principal)

== ENCOUNTER 2021-01-27 12:13 | Day surgery (SDC) | payer OTHER ==
[~2021-01-27] VITALS: Ht 183 cm; Wt 93.0 kg
[2021-01-27] MEDS ORDERED: LACTATED RINGERS 1,000 ML IV ONE (12:17)
[2021-01-27] MEDS ORDERED: FLEET ENEMA ADULT 1 EA BTL ONE (12:17)
[2021-01-27] MEDS ORDERED: LACTATED RINGERS 1,000 ML IV STA (12:21)
[2021-01-27 12:48] VITALS: BP 107/74
[2021-01-27] MEDS ORDERED: proPOfol 200 MG/20 ML (DIPRIVAN) VIAL IV ONE ×2 (13:47→14:05)
--- NOTE | 2021-01-27 14:19 | Progress Note-Post Operative ---
Post-Operative Progess Note Surgeon (s)/Used Equipment Sales Representative (s) Surgeon MARIA ALEJANDRA SINGER DO Used Equipment Sales Representative: na Pre-Operative Diagnosis rectal mass Post-Operative Diagnosis same Procedure & Operative Findings Date of Procedure 01/27/21 Procedure Performed/Findings flex sig c cold biopsies of rectal mass Anesthesia Type per harpoon engagement planning operator Estimated Blood Loss Estimated blood loss (mL): scant Specimens/Packing Specimens Removed rectal mass MARIA ALEJANDRA SINGER DO Jan 27, 2021 14:19
[2021-01-27 14:20] VITALS: BP 91/52
--- NOTE | 2021-01-27 14:20 | Anesthesia-General Post-Op ---
MAC Patient Condition Mental Status/LOC: Same as Preop Cardiovascular: Satisfactory Nausea/Vomiting: Absent Respiratory: Satisfactory Pain: Controlled Complications: Absent Post Op Complications Complications None Follow Up Care/Instructions Patient Instructions None needed. Anesthesiology Discharge Order Discharge Order Patient is doing well, no complaints, stable vital signs, no apparent adverse anesthesia problems. No complications reported per nursing. SAMEER COLLIER CRNA Jan 27, 2021 14:20
--- NOTE | 2021-01-27 14:21 | Discharge Inst-Simple/Standard ---
Discharge Inst-Standard Patient Instructions/Follow Up Plan of Care/Instructions/FU: 2 weeks Ron Activity as Tolerated: Yes Discharge Diet: Regular Diet MARIA ALEJANDRA SINGER DO Jan 27, 2021 14:21
[2021-01-27 14:25] VITALS: BP 112/64
[2021-01-27 14:55] VITALS: BP 124/73
[2021-01-27 15:10] VITALS: BP 124/73
--- NOTE | 2021-01-27 22:23 | OPERATIVE REPORT ---
DATE OF SERVICE: 01/27/2021 PREOPERATIVE DIAGNOSIS: Rectal mass. POSTOPERATIVE DIAGNOSIS: Rectal mass. PROCEDURE: Flexible sigmoidoscopy with cold biopsies of rectal mass. SURGEON: Maria Alejandra Velasquez DO ANESTHESIA: Per LIFE SKILLS INSTRUCTOR. ESTIMATED BLOOD LOSS: Scant. COMPLICATIONS: None. INDICATIONS: The patient is a 65-year-old male with rectal mass needing rebiopsy. The patient understands risks and benefits and wished to proceed. Consent was signed in the chart. DESCRIPTION OF PROCEDURE: The patient was taken to endoscopy suite, placed in left lateral recumbent position. Timeout was performed. Digital rectal exam was performed. No palpable polyps, masses or ulcerations. Scope was inserted in the rectum and some stool within the rectal vault. Lots of irrigation and suction performed. The scope was then advanced encountering the rectal mass, which tattoo markings were present. The scope was then passed through the area of the rectal mass into the sigmoid colon, which had normal appearance. Scope was then slowly retracted back. Multiple cold biopsies of the rectal mass near the rectosigmoid junction. Multiple cold biopsies were obtained. Scope was then slowly retracted back until completely removed. The patient tolerated procedure well without any complications, taken to recovery room in stable condition. RECOMMENDATIONS: The patient will follow up on pathology results in 2 weeks for further recommendations. Job ID: [id number] DocumentID: [id number] Dictated Date: 01/27/2021 14:24:44 Pharmacist Aide Date: 01/27/2021 22:22:24 Dictated By: MARIA ALEJANDRA VELASQUEZ DO
== END 2021-01-27 15:10 | disposition home or self-care (01) ==
LOC: ENDO 12:13
PROVIDERS: ATTEND Surgery
DX: C20 Malignant neoplasm of rectum (principal); I10 Essential (primary) hypertension; F32.A Depression, unspecified; F41.9 Anxiety disorder, unspecified; Z80.3 Family history of malignant neoplasm of breast; Z79.82 Long term (current) use of aspirin; Z79.899 Other long term (current) drug therapy

== ENCOUNTER → 2021-02-19 | Outpatient (CLI) | payer OTHER ==
[~2021-02-19] MED LIST changes: +GADOTERATE 0.5 MMOL/ML (CLARISCAN) 20 ML VIAL IV ONE
[2021-02-19 07:48] LABS: CREATININE SERUM 2.23 MG/DL (0.60-1.30)
--- NOTE | 2021-02-19 09:04 | Diagnostic Imaging Report ---
PROCEDURE: CT abdomen and pelvis without contrast. TECHNIQUE: Multiple contiguous axial images were obtained through the abdomen and pelvis without the use of intravenous contrast. Auto Exposure Controls were utilized during the CT exam to meet ALARA standards for radiation dose reduction. INDICATION: Rectal cancer. COMPARISON: No relevant comparison. FINDINGS: The unopacified liver appears nonfocal. The gallbladder and bile ducts are unremarkable. There is no adrenal mass. The nonfocal spleen is normal in size. The pancreas appears unremarkable on this exam. There is no appreciable abdominal/pelvic mesenteric or retroperitoneal lymphadenopathy. There is no bowel obstruction. There is tortuosity and redundancy of the unopacified and incompletely distended upper rectum and lower sigmoid colon which could obscure a mass. No perirectal or perisigmoidal infiltration. There is no intra or extra mesorectal adenopathy. The pelvic sidewalls are normal. The ileo-inguinal lymph node chains are normal. The urinary bladder is nearly empty. The prostate is unremarkable. No ascites, abscess, hematoma, or acute fluid collection. There is no suspicious lytic or sclerotic bony lesion. The aorta is nonaneurysmal. There is a large retrocardiac gastric hernia. IMPRESSION: 1. No findings to suggest metastatic disease at this limited nonenhanced study. Tortuosity and redundancy of the incompletely distended lower sigmoid and upper rectum limit evaluation of those regions. No evidence for lymphadenopathy, ascites, or obstructive features. 2. Large retrocardiac gastric hernia. Dictated by: Dictated on workstation # [id number]
--- NOTE | 2021-02-19 10:28 | Diagnostic Imaging Report ---
EXAMINATION: MRI pelvis with and without contrast. TECHNIQUE: Multiplanar, multisequence MRI of the pelvis was performed with and without contrast according to rectal staging protocol. HISTORY: 65-year-old male with newly diagnosed adenocarcinoma of the rectum. FINDINGS: Overall image quality: Adequate Tumor location and morphology: Tumor location: High rectum (10.1-15 cm) Distance of inferior border of tumor to anal verge: 12 cm. The tumor spans the anterior peritoneal reflection. Distance of inferior border of tumor to anorectal junction: 9-10 cm Craniocaudal length: 4-5 cm Circumferential location: Circumferential involvement from the 12:00 to 12 o'clock position. However, there is retraction with a central waist-like appearance in the mid aspect of the tumor, where there is asymmetric thickening at the 3 o'clock position. Morphology: (semi-)circumferential Mucinous: Possible. Within the left lateral wall, there is a T2 hyperintense cystic component of the tumor that measures approximately 1.0 x 1.0 cm. T-category: T3c (5-15 mm invasion beyond the muscularis propria) Structures invaded: The tumor definitely invades the muscularis propria. There are spiculations at the 3 o'clock position extending approximately 1 cm Involvement of sphincter complex: no CRM (for T3 only): Shortest distance to CRM: 10 mm Separate tumor deposit, suspicious lymph node or EMVI threating (<2 mm) or invading (<1 mm) the CRM: No N-category: N1a (1 abnormal lymph node) less than 5 mm with all of: irregular borders, heterogenous signal and round shape Suspicious mesorectal lymph nodes and/or tumor deposits: There is a single 5 mm lymph node which is round, heterogeneous in signal with some ill-definition of the margins (image 9, series 9). Number of suspicious lymph nodes: 1 Distance from tumor deposit to CRM: 2 mm Extramesorectal fascia lymph nodes: no Other findings: No concerning focal osseous lesions. IMPRESSION: 1. High rectal tumor at least invades the muscularis propria, with associated spiculations along its central aspect. These are suspicious for tumor invasion and therefore primary tumor staging is T3. 2. Single abnormal lymph node meets all criteria for regional metastasis, and therefore regional willem staging is N1. Dictated by: Dictated on workstation # [id number]
== END ==
LOC: RAD 08:15
PROVIDERS: ATTEND Surgery
DX: C20 Malignant neoplasm of rectum (principal); C77.5 Secondary and unspecified malignant neoplasm of intrapelvic lymph nodes; K46.9 Unspecified abdominal hernia without obstruction or gangrene
CPT/HCPCS: 36415; 72197; 74176; 82565; 84520

== ENCOUNTER → 2021-02-24 | Outpatient (CLI) | payer OTHER ==
[~2021-02-24] MED LIST changes: -GADOTERATE 0.5 MMOL/ML (CLARISCAN) 20 ML VIAL IV ONE
--- NOTE | 2021-02-24 10:34 | Diagnostic Imaging Report ---
INDICATION: Rectal cancer. TECHNIQUE: Multiple contiguous axial images were obtained through the chest without the use of intravenous contrast. Auto Exposure Controls were utilized during the CT exam to meet ALARA standards for radiation dose reduction. COMPARISON: There is no prior chest CT for comparison. FINDINGS: There are no enlarged mediastinal or hilar nodes. There are no enlarged axillary nodes or chest wall masses. There is a large hiatal hernia present. There is no pleural or pericardial fluid. Lung parenchymal windows demonstrate no pulmonary parenchymal masses or infiltrates. IMPRESSION: No evidence of metastatic disease in the chest. A large hiatal hernia is incidentally noted. Dictated by: Dictated on workstation # [id number]
== END ==
LOC: RAD 08:42
PROVIDERS: ATTEND Internal Medicine Hematology & Oncology
DX: C20 Malignant neoplasm of rectum (principal); K44.9 Diaphragmatic hernia without obstruction or gangrene
CPT/HCPCS: 71250

== ENCOUNTER 2021-03-03 05:39 | Outpatient (CLI) | payer OTHER ==
[~2021-03-03] VITALS: Ht 182.9 cm; Wt 92.2 kg
[2021-03-03] MEDS ORDERED: ZOLP5TAB PO (13:24)
[2021-03-03] MEDS ORDERED: LISI20TA26 PO (13:24)
[2021-03-03] MEDS ORDERED: AMLO-251 PO (13:36)
== END 2021-03-03 13:32 | disposition home or self-care (01) ==
LOC: PREOP 05:39
PROVIDERS: ATTEND Surgery
DX: Z01.818 Encounter for other preprocedural examination (principal)

== ENCOUNTER 2021-03-05 09:55 | Day surgery (SDC) | payer OTHER ==
[~2021-03-05] VITALS: Ht 182.9 cm; Wt 92.2 kg
[2021-03-05] VITALS (7 sets, daily range): BP systolic 83–159; BP diastolic 52–98
[~2021-03-05 09:55] MED LIST changes: +ZOLP5TAB PO; +ceFAZolin 2 GM IV Premixed 50 ML IV ONE
[2021-03-05] MEDS ORDERED: ceFAZolin 2 GM IV Premixed 50 ML ONE (10:19)
[2021-03-05] MEDS: LACTATED RINGERS 1,000 ML IV PRN ×2 (10:50→10:54)
--- NOTE | 2021-03-05 11:57 | Progress Note-Pre Operative ---
Pre-Operative Progress Note H&P Reviewed The H&P was reviewed, patient examined and no changes noted. Date Seen by Provider: Mar 05, 2021 Time Seen by Provider: 11:57 Date H&P Reviewed: Mar 05, 2021 Time H&P Reviewed: 11:57 Pre-Operative Diagnosis: rectal cancer MARIA ALEJANDRA SINGER DO Mar 05, 2021 11:57
[2021-03-05] MEDS ORDERED: 0.9% SODIUM CHLORIDE PF INJ 20 ML VIAL ONE (12:14)
[2021-03-05] MEDS ORDERED: LIDOCAINE/EPI 1%-1:100,000 (XYLOCAINE) 20ML ONE (12:15)
[2021-03-05] MEDS ORDERED: HEParin (CENTRAL IV FLUSH) 500 UNIT/5 ML SYR ONE (12:15)
[2021-03-05] MEDS ORDERED: fentaNYL INJ 100 MCG/2 ML AMP ONE (13:18)
[2021-03-05] MEDS ORDERED: LIDOCAINE PF 2% 5 ML (XYLOCAINE) VIAL ONE (13:18)
[2021-03-05] MEDS ORDERED: ONDANSETRON 4 MG/2 ML (SDV) Z0FRAN ONE (13:18)
[2021-03-05] MEDS ORDERED: proPOfol 200 MG/20 ML (DIPRIVAN) VIAL IV ONE (13:18)
[2021-03-05] MEDS ORDERED: MIDAZOLAM 2 MG/2 ML (VERSED) VIAL ONE (13:19)
[2021-03-05] MEDS ORDERED: PROPOFOL INJECTION 50 ML IV ONE (14:05)
--- NOTE | 2021-03-05 14:15 | Discharge Inst-Simple/Standard ---
Discharge Inst-Standard Patient Instructions/Follow Up Plan of Care/Instructions/FU: 2 weeks Ron Activity as Tolerated: No Discharge Diet: Regular Diet Other Inst to Patient Follow up Appt: Make appointment for 2 week. Instructions: No lifting greater than 10 pounds. No strenuous activity. May shower in 24 hours, no tub bath or soaking. Use incentive spirometer at home as directed. No Smoking Skin/Wound Care: You have special glue over your incision that will fall off on it's own. Ice pack on 15 min off 30 min and repeat for first 48 hours. This reduced swelling and discomfort. Symptoms to Report: Appetite Changes, Extremity Discoloration, Numbness/Tingling, Swelling Increased, Bleeding Excessive, Eyesight Changes, Pain Increased, Urine Color Change, Constipation(Persistent), Fever over 101 degree F, Pain/Pressure in chest, Urinating Difficulty, Cough Up/Vomit Blood, Heart Beat Irreg/Pounding, Pain/Pressure in jaw, Vaginal Bleeding Increase, Cramps in feet or legs, Lightheadedness, Pain/Pressure in shoulder, Diarrhea(Persistent), Memory Changes Suddenly, Questions/Concerns, Weight gain consecutive days, Dizziness/Fainting, Nausea/Vomiting, Shortness of Breath, Weight gain over 2 pounds If questions or concerns contact your physician Or seek help at emergency department. MARIA ALEJANDRA SINGER DO Mar 05, 2021 14:15
--- NOTE | 2021-03-05 14:16 | Progress Note-Post Operative ---
Post-Operative Progess Note Surgeon (s)/Transportation Planner (s) Surgeon MARIA ALEJANDRA SINGER DO Transportation Planner: na Pre-Operative Diagnosis rectal cancer Post-Operative Diagnosis same Procedure & Operative Findings Date of Procedure 03/05/21 Procedure Performed/Findings PROCEDURE: Right internal jugular port placement using ultrasound guidance. COMPLICATIONS: None. INDICATIONS: The patient is a 65 year old male with rectal cancer. Patient understands the risks and benefits of port placement and wished to proceed with the procedure. Consent was signed on the chart. PROCEDURE: The patient was taken to the operating suite, was prepped and draped in the sterile fashion. A surgical pause was performed. Ultrasound was used to locate the internal jugular vein. Once located anesthetic was infiltrated above it. Using micro-access kit, the right internal vein was accessed. Dark nonpulsatile blood was withdrawn. The wire was inserted. Fluoroscopy assured proper placement. The needle was removed. The micro-access dilator was advanced over the wire and the wire was removed. The regular wire was inserted and fluoroscopy assured proper placement. The wire was then secured. Local anesthetic was used to anesthetize from the neck for tunneling down to the right chest and for pocket creation. A 15 blade scalpel was used to make an incision over the right chest. Cautery was used to dissect down to the pectoral fascia. A pocket was created with blunt dissection. The dilator sheath was then advanced over the wire under fluoroscopy and the dilator and wire were removed. The Groshong catheter was inserted through the sheath and the sheath was then removed. The Groshong wire was removed. The catheter was then tunneled to the right chest pocket. Fluoroscopy was used to cut to length and this was then attached to the port which was then placed within the pocket. The port was then accessed without difficulty. It was then flushed with saline and then heparin. The subcutaneous tissues were then reapproximated using 3-0 Vicryl. The areas were then washed and dried. Skin Affix was placed over incision. The insertion point of the neck Skin Affix was placed over the incision. The patient tolerated the procedure well without complication and was taken to recovery room in stable condition. Chest x-ray is pending. Anesthesia Type mac c local Estimated Blood Loss Estimated blood loss (mL): minimal Specimens/Packing Specimens Removed none MARIA ALEJANDRA SINGER DO Mar 05, 2021 14:16
--- NOTE | 2021-03-05 14:19 | Anesthesia-General Post-Op ---
MAC Patient Condition Mental Status/LOC: Same as Preop Cardiovascular: Satisfactory Nausea/Vomiting: Absent Respiratory: Satisfactory Pain: Controlled Complications: Absent Post Op Complications Complications None Follow Up Care/Instructions Patient Instructions None needed. Anesthesiology Discharge Order Discharge Order Patient is doing well, no complaints, stable vital signs, no apparent adverse anesthesia problems. No complications reported per nursing. SAMEER COLLIER CRNA Mar 05, 2021 14:19
[2021-03-05] MEDS ORDERED: ONDANSETRON 4 MG/2 ML (SDV) Z0FRAN IVP PRN (14:30)
[2021-03-05] MEDS ORDERED: MEPERIDINE (DEMEROL) INJ 50 MG/ML IVP ONE (14:30)
[2021-03-05] MEDS ORDERED: morphine INJ 10 MG/ML 1ML (SYR OR VIAL) IVP ONE (14:30)
--- NOTE | 2021-03-05 14:51 | Diagnostic Imaging Report ---
INDICATION: Postop Port-A-Cath placement Frontal chest obtained at 0242 p.m. and compared to 02/28/2020 Heart is normal in size. There is a prominent hiatal hernia. There is no focal infiltrate or pneumothorax or pleural fluid. Port-A-Cath is seen over the right chest with catheter tip overlying the upper SVC. IMPRESSION: No focal infiltrate or pneumothorax or pleural fluid. Prominent hiatal hernia. Dictated by: Dictated on workstation # [id number]
--- NOTE | 2021-03-05 16:33 | Diagnostic Imaging Report ---
INDICATION: Port-A-Cath placement. Intraoperative fluoroscopic views obtained during Port-A-Cath placement in surgery. Two views are obtained. 21.6 seconds of fluoroscopy time was used. Fluoroscopic views demonstrate guidewire in place from the right IJ. Port-A-Cath is seen over the right chest with catheter entering the right internal jugular vein and catheter tip overlying the SVC. The study is otherwise limited. IMPRESSION: Intraoperative fluoroscopic views obtained during Port-A-Cath placement as above. Dictated by: Dictated on workstation # [id number]
== END 2021-03-05 15:30 | disposition home or self-care (01) ==
LOC: SDC 09:55
PROVIDERS: ATTEND Surgery
DX: C20 Malignant neoplasm of rectum (principal); I10 Essential (primary) hypertension; R09.89 Other specified symptoms and signs involving the circulatory and respiratory systems; Z87.891 Personal history of nicotine dependence; Z79.899 Other long term (current) drug therapy; Z11.2 Encounter for screening for other bacterial diseases
CPT/HCPCS: 71045; 76000; 87081

== ENCOUNTER 2021-04-23 13:21 | Outpatient (RCR) | payer OTHER ==
[2021-02-20 12:02] LABS: BASOPHILS # (AUTO) 0.1 10^3/uL (0.0-0.1); BASOPHILS % (AUTO) 2 % (0-10); EOSINOPHILS # (AUTO) 0.2 10^3/uL (0.0-0.3); EOSINOPHILS % (AUTO) 5 % (0-10); HEMATOCRIT 27 % (40-54); HEMOGLOBIN 7.7 g/dL (13.3-17.7); LYMPHOCYTES # (AUTO) 0.9 10^3/uL (1.0-4.0); LYMPHOCYTES % (AUTO) 19 % (12-44); MEAN CORPUSCULAR HEMOGLOBIN 20 pg (25-34); MEAN CORPUSCULAR HGB CONC 28 g/dL (32-36); MEAN CORPUSCULAR VOLUME 70 fL (80-99); MEAN PLATELET VOLUME 10.2 fL (9.0-12.2); MONOCYTES # (AUTO) 0.5 10^3/uL (0.0-1.0); MONOCYTES % (AUTO) 10 % (0-12); NEUTROPHILS # (AUTO) 2.9 10^3/uL (1.8-7.8); NEUTROPHILS % (AUTO) 64 % (42-75); PLATELET COUNT 411 10^3/uL (130-400); WHITE BLOOD COUNT 4.5 10^3/uL (4.3-11.0)
[2021-02-20 12:16] LABS: BILIRUBIN,TOTAL 0.3 MG/DL (0.1-1.0); CREATININE SERUM 2.19 MG/DL (0.60-1.30); TOTAL PROTEIN 6.9 GM/DL (6.4-8.2)
[2021-03-09 10:41] LABS: HEMATOCRIT 27 % (40-54); HEMOGLOBIN 7.7 g/dL (13.3-17.7); MEAN CORPUSCULAR HEMOGLOBIN 20 pg (25-34); MEAN CORPUSCULAR HGB CONC 29 g/dL (32-36); MEAN CORPUSCULAR VOLUME 68 fL (80-99); MEAN PLATELET VOLUME 9.9 fL (9.0-12.2); PLATELET COUNT 437 10^3/uL (130-400); WHITE BLOOD COUNT 6.7 10^3/uL (4.3-11.0)
[2021-03-25 14:24] LABS: BASOPHILS % (AUTO) 1 % (0-10); EOSINOPHILS # (AUTO) 0.1 10^3/uL (0.0-0.3); EOSINOPHILS % (AUTO) 3 % (0-10); HEMATOCRIT 35 % (40-54); HEMOGLOBIN 10.1 g/dL (13.3-17.7); LYMPHOCYTES # (AUTO) 0.9 10^3/uL (1.0-4.0); LYMPHOCYTES % (AUTO) 19 % (12-44); MEAN CORPUSCULAR HEMOGLOBIN 21 pg (25-34); MEAN CORPUSCULAR HGB CONC 29 g/dL (32-36); MEAN CORPUSCULAR VOLUME 73 fL (80-99); MEAN PLATELET VOLUME 9.7 fL (9.0-12.2); MONOCYTES # (AUTO) 0.4 10^3/uL (0.0-1.0); MONOCYTES % (AUTO) 9 % (0-12); NEUTROPHILS # (AUTO) 3.2 10^3/uL (1.8-7.8); NEUTROPHILS % (AUTO) 69 % (42-75); PLATELET COUNT 320 10^3/uL (130-400); WHITE BLOOD COUNT 4.7 10^3/uL (4.3-11.0)
[2021-03-25 14:44] LABS: CALCIUM 8.8 MG/DL (8.5-10.1); CREATININE SERUM 2.31 MG/DL (0.60-1.30); POTASSIUM 4.8 MMOL/L (3.6-5.0)
[2021-03-30 13:54] LABS: BASOPHILS % (AUTO) 1 % (0-10); EOSINOPHILS # (AUTO) 0.2 10^3/uL (0.0-0.3); EOSINOPHILS % (AUTO) 4 % (0-10); HEMATOCRIT 38 % (40-54); HEMOGLOBIN 10.9 g/dL (13.3-17.7); LYMPHOCYTES # (AUTO) 0.7 10^3/uL (1.0-4.0); LYMPHOCYTES % (AUTO) 19 % (12-44); MEAN CORPUSCULAR HEMOGLOBIN 22 pg (25-34); MEAN CORPUSCULAR HGB CONC 29 g/dL (32-36); MEAN CORPUSCULAR VOLUME 76 fL (80-99); MEAN PLATELET VOLUME 9.7 fL (9.0-12.2); MONOCYTES # (AUTO) 0.2 10^3/uL (0.0-1.0); MONOCYTES % (AUTO) 7 % (0-12); NEUTROPHILS # (AUTO) 2.4 10^3/uL (1.8-7.8); NEUTROPHILS % (AUTO) 68 % (42-75); PLATELET COUNT 276 10^3/uL (130-400); WHITE BLOOD COUNT 3.5 10^3/uL (4.3-11.0)
[2021-03-30 14:17] LABS: CALCIUM 8.9 MG/DL (8.5-10.1); CREATININE SERUM 1.67 MG/DL (0.60-1.30); POTASSIUM 5.2 MMOL/L (3.6-5.0)
[2021-04-08 14:11] LABS: BASOPHILS % (AUTO) 1 % (0-10); EOSINOPHILS # (AUTO) 0.2 10^3/uL (0.0-0.3); EOSINOPHILS % (AUTO) 4 % (0-10); HEMATOCRIT 34 % (40-54); HEMOGLOBIN 10.2 g/dL (13.3-17.7); LYMPHOCYTES # (AUTO) 0.5 10^3/uL (1.0-4.0); LYMPHOCYTES % (AUTO) 15 % (12-44); MEAN CORPUSCULAR HEMOGLOBIN 24 pg (25-34); MEAN CORPUSCULAR HGB CONC 30 g/dL (32-36); MEAN CORPUSCULAR VOLUME 79 fL (80-99); MEAN PLATELET VOLUME 8.6 fL (9.0-12.2); MONOCYTES # (AUTO) 0.4 10^3/uL (0.0-1.0); MONOCYTES % (AUTO) 11 % (0-12); NEUTROPHILS # (AUTO) 2.4 10^3/uL (1.8-7.8); NEUTROPHILS % (AUTO) 68 % (42-75); PLATELET COUNT 207 10^3/uL (130-400); WHITE BLOOD COUNT 3.5 10^3/uL (4.3-11.0)
[2021-04-08 14:37] LABS: ALBUMIN 3.7 GM/DL (3.2-4.5); BILIRUBIN,TOTAL 0.4 MG/DL (0.1-1.0); CALCIUM 8.4 MG/DL (8.5-10.1); CREATININE SERUM 1.76 MG/DL (0.60-1.30); POTASSIUM 4.1 MMOL/L (3.6-5.0); TOTAL PROTEIN 6.4 GM/DL (6.4-8.2)
[2021-04-22 14:03] LABS: BASOPHILS % (AUTO) 1 % (0-10); EOSINOPHILS # (AUTO) 0.2 10^3/uL (0.0-0.3); EOSINOPHILS % (AUTO) 5 % (0-10); HEMATOCRIT 39 % (40-54); HEMOGLOBIN 11.8 g/dL (13.3-17.7); LYMPHOCYTES # (AUTO) 0.4 10^3/uL (1.0-4.0); LYMPHOCYTES % (AUTO) 11 % (12-44); MEAN CORPUSCULAR HEMOGLOBIN 26 pg (25-34); MEAN CORPUSCULAR HGB CONC 31 g/dL (32-36); MEAN CORPUSCULAR VOLUME 85 fL (80-99); MEAN PLATELET VOLUME 9.6 fL (9.0-12.2); MONOCYTES # (AUTO) 0.4 10^3/uL (0.0-1.0); MONOCYTES % (AUTO) 12 % (0-12); NEUTROPHILS # (AUTO) 2.4 10^3/uL (1.8-7.8); NEUTROPHILS % (AUTO) 70 % (42-75); PLATELET COUNT 157 10^3/uL (130-400); WHITE BLOOD COUNT 3.4 10^3/uL (4.3-11.0)
[2021-04-22 14:25] LABS: BILIRUBIN,TOTAL 0.8 MG/DL (0.1-1.0); CREATININE SERUM 1.64 MG/DL (0.60-1.30); POTASSIUM 4.1 MMOL/L (3.6-5.0); TOTAL PROTEIN 7.1 GM/DL (6.4-8.2)
[~2021-04-23 13:21] MED LIST changes: +IRON SUCROSE 100 MG/5 ML (VENOFER) VIAL CANCER CTR IV SCH; +NS IV 1000 ML (CANCER CTR) 1,000 ML ONE; -ceFAZolin 2 GM IV Premixed 50 ML IV ONE
== END 2021-04-24 | disposition home or self-care (01) ==
LOC: ONC 13:21
PROVIDERS: ATTEND Internal Medicine Hematology & Oncology
DX: Z51.0 Encounter for antineoplastic radiation therapy (principal); C20 Malignant neoplasm of rectum; D50.0 Iron deficiency anemia secondary to blood loss (chronic); N18.9 Chronic kidney disease, unspecified; D63.1 Anemia in chronic kidney disease
CPT/HCPCS: 77300; 77301; 77334; 77336; 77338; 77386; 77470; 80048; 80053; 82378; 82728; 83540; 83550; 85025; 85027; 96360; 96374; 99204; 99213; 99214

== ENCOUNTER → 2021-05-25 | Outpatient (RCR) | payer OTHER ==
[~2021-05-25] MED LIST changes: -IRON SUCROSE 100 MG/5 ML (VENOFER) VIAL CANCER CTR IV SCH; -NS IV 1000 ML (CANCER CTR) 1,000 ML ONE
[2021-05-25 14:50] LABS: BASOPHILS # (AUTO) 0.1 10^3/uL (0.0-0.1); BASOPHILS % (AUTO) 1 % (0-10); EOSINOPHILS # (AUTO) 0.2 10^3/uL (0.0-0.3); EOSINOPHILS % (AUTO) 4 % (0-10); HEMATOCRIT 41 % (40-54); HEMOGLOBIN 13.8 g/dL (13.3-17.7); LYMPHOCYTES # (AUTO) 0.4 X 10^3 (1.0-4.0); LYMPHOCYTES % (AUTO) 10 % (12-44); MEAN CORPUSCULAR HEMOGLOBIN 30 pg (25-34); MEAN CORPUSCULAR HGB CONC 34 g/dL (32-36); MEAN CORPUSCULAR VOLUME 88 fL (80-99); MEAN PLATELET VOLUME 8.8 fL (9.0-12.2); MONOCYTES # (AUTO) 0.7 X 10^3 (0.0-1.0); MONOCYTES % (AUTO) 16 % (0-12); NEUTROPHILS % (AUTO) 69 % (42-75); PLATELET COUNT 258 10^3/uL (130-400); WHITE BLOOD COUNT 4.3 10^3/uL (4.3-11.0)
[2021-05-25 15:12] LABS: ALBUMIN 4.2 GM/DL (3.2-4.5); BILIRUBIN,TOTAL 0.4 MG/DL (0.1-1.0); CALCIUM 9.7 MG/DL (8.5-10.1); CREATININE SERUM 1.48 MG/DL (0.60-1.30); POTASSIUM 4.1 MMOL/L (3.6-5.0); TOTAL PROTEIN 7.9 GM/DL (6.4-8.2)
== END | disposition home or self-care (01) ==
LOC: ONC 04-27 01:45
PROVIDERS: ATTEND Internal Medicine Hematology & Oncology
DX: Z51.0 Encounter for antineoplastic radiation therapy (principal); C20 Malignant neoplasm of rectum; D50.0 Iron deficiency anemia secondary to blood loss (chronic); N18.9 Chronic kidney disease, unspecified; D63.1 Anemia in chronic kidney disease
CPT/HCPCS: 36415; 77336; 77386; 80053; 82378; 85025; 99213

== ENCOUNTER → 2021-07-23 | Outpatient (RCR) | payer OTHER ==
[2021-07-23 11:08] LABS: BASOPHILS % (AUTO) 1 % (0-10); EOSINOPHILS # (AUTO) 0.2 10^3/uL (0.0-0.3); EOSINOPHILS % (AUTO) 4 % (0-10); HEMATOCRIT 41 % (40-54); HEMOGLOBIN 13.6 g/dL (13.3-17.7); LYMPHOCYTES # (AUTO) 0.6 10^3/uL (1.0-4.0); LYMPHOCYTES % (AUTO) 13 % (12-44); MEAN CORPUSCULAR HEMOGLOBIN 32 pg (25-34); MEAN CORPUSCULAR HGB CONC 34 g/dL (32-36); MEAN CORPUSCULAR VOLUME 94 fL (80-99); MEAN PLATELET VOLUME 8.9 fL (9.0-12.2); MONOCYTES # (AUTO) 0.7 10^3/uL (0.0-1.0); MONOCYTES % (AUTO) 14 % (0-12); NEUTROPHILS # (AUTO) 3.3 10^3/uL (1.8-7.8); NEUTROPHILS % (AUTO) 68 % (42-75); PLATELET COUNT 299 10^3/uL (130-400); WHITE BLOOD COUNT 4.9 10^3/uL (4.3-11.0)
[2021-07-23 11:27] LABS: ALBUMIN 4.2 GM/DL (3.2-4.5); BILIRUBIN,TOTAL 0.5 MG/DL (0.1-1.0); CALCIUM 9.4 MG/DL (8.5-10.1); CREATININE SERUM 2.29 MG/DL (0.60-1.30); POTASSIUM 4.2 MMOL/L (3.6-5.0); TOTAL PROTEIN 7.4 GM/DL (6.4-8.2)
== END ==
LOC: ONC 10:59
PROVIDERS: ATTEND Internal Medicine Hematology & Oncology
DX: C20 Malignant neoplasm of rectum (principal); D50.0 Iron deficiency anemia secondary to blood loss (chronic); N18.9 Chronic kidney disease, unspecified; D63.1 Anemia in chronic kidney disease
CPT/HCPCS: 36415; 80053; 85025; 99213

== ENCOUNTER 2021-08-21 10:25 | Outpatient (RCR) | payer OTHER ==
[2021-08-21 10:33] LABS: BASOPHILS # (AUTO) 0.1 10^3/uL (0.0-0.1); BASOPHILS % (AUTO) 1 % (0-10); EOSINOPHILS # (AUTO) 0.3 10^3/uL (0.0-0.3); EOSINOPHILS % (AUTO) 5 % (0-10); HEMATOCRIT 41 % (40-54); HEMOGLOBIN 13.4 g/dL (13.3-17.7); LYMPHOCYTES # (AUTO) 0.8 10^3/uL (1.0-4.0); LYMPHOCYTES % (AUTO) 13 % (12-44); MEAN CORPUSCULAR HEMOGLOBIN 30 pg (25-34); MEAN CORPUSCULAR HGB CONC 33 g/dL (32-36); MEAN CORPUSCULAR VOLUME 92 fL (80-99); MEAN PLATELET VOLUME 9.2 fL (9.0-12.2); MONOCYTES # (AUTO) 0.6 10^3/uL (0.0-1.0); MONOCYTES % (AUTO) 9 % (0-12); NEUTROPHILS # (AUTO) 4.4 10^3/uL (1.8-7.8); NEUTROPHILS % (AUTO) 72 % (42-75); PLATELET COUNT 401 10^3/uL (130-400); WHITE BLOOD COUNT 6.1 10^3/uL (4.3-11.0)
[2021-08-21 10:51] LABS: ALBUMIN 4.3 GM/DL (3.2-4.5); BILIRUBIN,TOTAL 0.5 MG/DL (0.1-1.0); CALCIUM 9.4 MG/DL (8.5-10.1); CREATININE SERUM 2.41 MG/DL (0.60-1.30); POTASSIUM 4.2 MMOL/L (3.6-5.0); TOTAL PROTEIN 7.5 GM/DL (6.4-8.2)
== END 2021-08-22 | disposition home or self-care (01) ==
LOC: ONC 10:25
PROVIDERS: ATTEND Internal Medicine Hematology & Oncology
DX: C20 Malignant neoplasm of rectum (principal); D50.0 Iron deficiency anemia secondary to blood loss (chronic); N18.9 Chronic kidney disease, unspecified; D63.1 Anemia in chronic kidney disease
CPT/HCPCS: 36415; 80053; 85025

== ENCOUNTER 2021-12-02 02:10 | Outpatient (RCR) | payer OTHER ==
[2021-12-02 14:53] LABS: BASOPHILS % (AUTO) 0 % (0-10); EOSINOPHILS % (AUTO) 0 % (0-10); HEMATOCRIT 41 % (40-54); HEMOGLOBIN 14.1 g/dL (13.3-17.7); LYMPHOCYTES # (AUTO) 0.7 10^3/uL (1.0-4.0); LYMPHOCYTES % (AUTO) 5 % (12-44); MEAN CORPUSCULAR HEMOGLOBIN 30 pg (25-34); MEAN CORPUSCULAR HGB CONC 34 g/dL (32-36); MEAN CORPUSCULAR VOLUME 88 fL (80-99); MEAN PLATELET VOLUME 9.7 fL (9.0-12.2); MONOCYTES % (AUTO) 7 % (0-12); NEUTROPHILS # (AUTO) 11.3 10^3/uL (1.8-7.8); NEUTROPHILS % (AUTO) 86 % (42-75); PLATELET COUNT 271 10^3/uL (130-400); WHITE BLOOD COUNT 13.1 10^3/uL (4.3-11.0)
[2021-12-02 15:22] LABS: ALBUMIN 4.4 GM/DL (3.2-4.5); BILIRUBIN,TOTAL 0.7 MG/DL (0.1-1.0); CALCIUM 9.4 MG/DL (8.5-10.1); CREATININE SERUM 1.83 MG/DL (0.60-1.30); TOTAL PROTEIN 7.5 GM/DL (6.4-8.2)
== END 2021-12-23 | disposition home or self-care (01) ==
LOC: ONC 02:10
PROVIDERS: ATTEND Internal Medicine Hematology & Oncology
DX: C19 Malignant neoplasm of rectosigmoid junction (principal); Z92.21 Personal history of antineoplastic chemotherapy; Z45.2 Encounter for adjustment and management of vascular access device
CPT/HCPCS: 36415; 80053; 82378; 85025; 96523

== ENCOUNTER 2022-01-27 05:41 | Outpatient (CLI) | payer OTHER ==
[~2022-01-27] VITALS: Ht 182.9 cm; Wt 93.0 kg
[2022-01-27] MEDS ORDERED: VITA1TAB PO (16:30)
[2022-01-27] MEDS ORDERED: HYDR25TA4 PO (16:30)
[2022-01-27] MEDS ORDERED: PANT40TA52 PO (16:30)
== END 2022-01-27 16:32 | disposition home or self-care (01) ==
LOC: PREOP 05:41
PROVIDERS: ATTEND Surgery
DX: Z01.818 Encounter for other preprocedural examination (principal)

== ENCOUNTER 2022-02-09 09:25 | Day surgery (SDC) | payer OTHER ==
[~2022-02-09] VITALS: Ht 182.9 cm; Wt 93.0 kg
[~2022-02-09 09:25] MED LIST changes: +HYDR25TA4 PO; +PANT40TA52 PO; +VITA1TAB PO
[2022-02-09] MEDS ORDERED: LACTATED RINGERS 1,000 ML IV STA (09:31)
[2022-02-09 09:45] VITALS: BP 149/103
[2022-02-09] MEDS ORDERED: HURRICAINE EXT TUBE (BENZOCAINE) XX PRN (09:45)
--- NOTE | 2022-02-09 11:45 | Progress Note-Pre Operative ---
Pre-Operative Progress Note Date H&P Reviewed: Feb 09, 2022 Time H&P Reviewed: 11:45 History & Physical: H&P Reviewed, Patient Examed Pre-Operative Diagnosis: Hx of colon cancer, hiatal hernia, GERD MARIA ALEJANDRA SINGER DO Feb 09, 2022 11:45
[2022-02-09] MEDS ORDERED: PROPOFOL INJECTION 50 ML IV ONE ×2 (11:48→11:56)
--- NOTE | 2022-02-09 12:20 | Progress Note-Post Operative ---
Post-Operative Progess Note Surgeon (s)/Cable Weaver (s) Surgeon MARIA ALEJANDRA SINGER DO Cable Weaver: N/A Pre-Operative Diagnosis Hx of colon cancer, hiatal hernia, GERD Post-Operative Diagnosis Duodenitis w ulcerations Gastritis hiatal hernia rectal inflammation Procedure & Operative Findings Date of Procedure 02/09/22 Procedure Performed/Findings EGD with biopsies Colonoscopy with cold biopsies Rectal biopsies Anesthesia Type per regional liaison Estimated Blood Loss Estimated blood loss (mL): none Specimens/Packing Specimens Removed duodenual biopsies x2 Antrum biopsy x1 Ge bx x1 Rectal bx x1 MARIA ALEJANDRA SINGER DO Feb 09, 2022 12:20
--- NOTE | 2022-02-09 12:21 | Discharge Inst-Simple/Standard ---
Discharge Inst-Standard Reconcile Patient Problems Problems Reviewed?: Yes Patient Instructions/Follow Up Plan of Care/Instructions/FU: f/u in [address] Velasquez Activity as Tolerated: Yes Discharge Diet: Regular Diet MARIA ALEJANDRA VELASQUEZ DO Feb 09, 2022 12:21
[2022-02-09 12:23] VITALS: BP 83/52
[2022-02-09 12:28] VITALS: BP 101/62
[2022-02-09 12:33] VITALS: BP 120/62
[2022-02-09 12:40] VITALS: BP 120/62
--- NOTE | 2022-02-09 12:43 | Anesthesia-General Post-Op ---
MAC Patient Condition Mental Status/LOC: Same as Preop Cardiovascular: Satisfactory Nausea/Vomiting: Absent Respiratory: Satisfactory Pain: Controlled Complications: Absent Post Op Complications Complications None Follow Up Care/Instructions Patient Instructions None needed. Anesthesiology Discharge Order Discharge Order Patient is doing well, no complaints, stable vital signs, no apparent adverse anesthesia problems. No complications reported per nursing. SAMEER COLLIER CRNA Feb 09, 2022 12:43
[2022-02-09 13:05] VITALS: BP 120/62
[2022-02-09] MEDS ORDERED: LACTATED RINGERS 1,000 ML IV ONE (13:12)
--- NOTE | 2022-02-09 21:07 | OPERATIVE REPORT ---
DATE OF SERVICE: 02/09/2022 PREOPERATIVE DIAGNOSES: Gastroesophageal reflux disease and history of rectal cancer. POSTOPERATIVE DIAGNOSES: Duodenitis with ulcerations, gastritis, large hiatal hernia, rectal inflammation. PROCEDURE: EGD with biopsies, colonoscopy with colorectal biopsies. SURGEON: Maria Alejandra Velasquez DO ANESTHESIA: Per FOOD ASSEMBLER COMMISSARY KITCHEN. ESTIMATED BLOOD LOSS: None. COMPLICATIONS: None. INDICATIONS: The patient is a 66-year-old male with GERD and history of hiatal hernia and history of rectal cancer. He understands risks and benefits of procedure and wishes to proceed. Consent was signed in the chart. DESCRIPTION OF PROCEDURE: The patient was taken to endoscopy suite, placed in left lateral recumbent position. Timeout was performed. Scope was inserted in mouth, down the esophagus, stomach and duodenum without difficulty. Second portion of duodenum had normal appearance, first portion had evidence of multiple small ulcerations and inflammation consistent with duodenitis. Biopsies were obtained. Scope was retracted back into the stomach where it was further insufflated. Multiple changes of erythema, inflammation, punctate ulcerations. Biopsy of the antrum was obtained. Scope was retroflexed noting a large hiatal hernia. Scope was returned to its normal position, slowly withdrawn to distal esophagus. Biopsy of the GE junction was obtained. No polyps, masses or ulcerations. Scope was slowly retracted back until completely removed. Digital rectal exam was performed. No palpable polyps, masses or ulcerations. Scope was inserted in the rectum and advanced all the way to cecum with minimal difficulty. Prep was adequate. Scope was slowly retracted back. No polyps, masses or ulcerations in the cecum, ascending, transverse, descending, sigmoid colon. In the distal portion of the rectum, inflammation changes likely reactive from prep. Cold biopsy was obtained. Scope was slowly retracted back until completely removed. The patient tolerated the procedure well without any complications, taken to recovery room in stable condition. RECOMMENDATIONS: The patient will need repeat colonoscopy in three years for further evaluation. Any issues before that be seen at that time. The patient will also be on Protonix 40 mg daily. The patient will follow up in two weeks. Job ID: [id number] DocumentID: [id number] Dictated Date: 02/09/2022 12:20:02 Principal Systems Architect Date: 02/09/2022 21:05:54 Dictated By: MARIA ALEJANDRA VELASQUEZ DO
== END 2022-02-09 13:18 | disposition home or self-care (01) ==
LOC: ENDO 09:25
PROVIDERS: ATTEND Surgery
DX: K21.00 Gastro-esophageal reflux disease with esophagitis, without bleeding (principal); K31.89 Other diseases of stomach and duodenum; K29.70 Gastritis, unspecified, without bleeding; K44.9 Diaphragmatic hernia without obstruction or gangrene; Z79.899 Other long term (current) drug therapy; Z87.891 Personal history of nicotine dependence; Z28.311 Partially vaccinated for COVID-19

== ENCOUNTER 2022-02-15 13:04 | Outpatient (RCR) | payer OTHER ==
[2022-02-15 13:32] LABS: BASOPHILS % (AUTO) 1 % (0-10); EOSINOPHILS # (AUTO) 0.3 10^3/uL (0.0-0.3); EOSINOPHILS % (AUTO) 6 % (0-10); HEMATOCRIT 43 % (40-54); HEMOGLOBIN 14.2 g/dL (13.3-17.7); LYMPHOCYTES # (AUTO) 0.6 10^3/uL (1.0-4.0); LYMPHOCYTES % (AUTO) 13 % (12-44); MEAN CORPUSCULAR HEMOGLOBIN 30 pg (25-34); MEAN CORPUSCULAR HGB CONC 33 g/dL (32-36); MEAN CORPUSCULAR VOLUME 89 fL (80-99); MEAN PLATELET VOLUME 9.8 fL (9.0-12.2); MONOCYTES # (AUTO) 0.5 10^3/uL (0.0-1.0); MONOCYTES % (AUTO) 11 % (0-12); NEUTROPHILS # (AUTO) 3.3 10^3/uL (1.8-7.8); NEUTROPHILS % (AUTO) 69 % (42-75); PLATELET COUNT 272 10^3/uL (130-400); WHITE BLOOD COUNT 4.8 10^3/uL (4.3-11.0)
[2022-02-15 13:42] LABS: ALBUMIN 3.8 GM/DL (3.2-4.5)
[2022-02-15 13:43] LABS: POTASSIUM 4.4 MMOL/L (3.6-5.0)
[2022-02-15 13:44] LABS: CALCIUM 9.3 MG/DL (8.5-10.1)
[2022-02-15 13:45] LABS: TOTAL PROTEIN 7.1 GM/DL (6.4-8.2)
[2022-02-15 13:47] LABS: BILIRUBIN,TOTAL 0.4 MG/DL (0.1-1.0)
[2022-02-15 13:49] LABS: CREATININE SERUM 1.48 MG/DL (0.60-1.30)
== END 2022-02-22 | disposition home or self-care (01) ==
LOC: ONC 13:04
PROVIDERS: ATTEND Internal Medicine Hematology & Oncology
DX: C19 Malignant neoplasm of rectosigmoid junction (principal); K44.9 Diaphragmatic hernia without obstruction or gangrene; D64.9 Anemia, unspecified; K92.2 Gastrointestinal hemorrhage, unspecified; Z92.21 Personal history of antineoplastic chemotherapy
CPT/HCPCS: 36415; 36591; 80053; 82378; 85025

== ENCOUNTER 2022-10-27 12:42 | Outpatient (RCR) | payer OTHER ==
[2022-10-27 13:30] LABS: BASOPHILS # (AUTO) 0.1 10^3/uL (0.0-0.1); BASOPHILS % (AUTO) 1 % (0-10); EOSINOPHILS # (AUTO) 0.2 10^3/uL (0.0-0.3); EOSINOPHILS % (AUTO) 5 % (0-10); HEMATOCRIT 31 % (40-54); HEMOGLOBIN 9.1 g/dL (13.3-17.7); LYMPHOCYTES # (AUTO) 0.7 10^3/uL (1.0-4.0); LYMPHOCYTES % (AUTO) 15 % (12-44); MEAN CORPUSCULAR HEMOGLOBIN 21 pg (25-34); MEAN CORPUSCULAR HGB CONC 29 g/dL (32-36); MEAN CORPUSCULAR VOLUME 72 fL (80-99); MEAN PLATELET VOLUME 10.4 fL (9.0-12.2); MONOCYTES # (AUTO) 0.5 10^3/uL (0.0-1.0); MONOCYTES % (AUTO) 12 % (0-12); NEUTROPHILS # (AUTO) 3.1 10^3/uL (1.8-7.8); NEUTROPHILS % (AUTO) 67 % (42-75); PLATELET COUNT 297 10^3/uL (130-400); WHITE BLOOD COUNT 4.5 10^3/uL (4.3-11.0)
[2022-10-27 13:47] LABS: ALBUMIN 3.9 GM/DL (3.2-4.5); BILIRUBIN,TOTAL 0.3 MG/DL (0.1-1.0); CALCIUM 8.5 MG/DL (8.5-10.1); CREATININE SERUM 1.43 MG/DL (0.60-1.30); POTASSIUM 3.8 MMOL/L (3.6-5.0); TOTAL PROTEIN 6.9 GM/DL (6.4-8.2)
[2022-11-02] MEDS ORDERED: MECL-149 PO (07:52)
[2022-11-02] MEDS ORDERED: ONDA4TAB11 SL (07:52)
[2022-11-23] MEDS ORDERED: SUCR1TAB36 PO (09:19)
== END 2022-11-22 | disposition home or self-care (01) ==
LOC: ONC 12:42
PROVIDERS: ATTEND Internal Medicine Hematology & Oncology
DX: C20 Malignant neoplasm of rectum (principal); K44.9 Diaphragmatic hernia without obstruction or gangrene; D64.9 Anemia, unspecified; K92.2 Gastrointestinal hemorrhage, unspecified; K21.9 Gastro-esophageal reflux disease without esophagitis; Z92.21 Personal history of antineoplastic chemotherapy; Z85.038 Personal history of other malignant neoplasm of large intestine
CPT/HCPCS: 36591; 80053; 85025

== ENCOUNTER 2022-11-02 06:14 | Emergency (ER) | payer OTHER ==
[~2022-11-02] VITALS: Ht 182.8 cm; Wt 100.0 kg
[2022-11-02 06:19] VITALS: BP 164/94
[2022-11-02] MEDS ORDERED: ONDANSETRON 4 MG/2 ML (SDV) Z0FRAN IVP STA (06:30)
[2022-11-02] MEDS ORDERED: NS IV 1000 ML 1,000 ML IV STA (06:30)
[2022-11-02] MEDS ORDERED: MECLIZINE 25 MG (ANTIVERT) TAB PO STA (06:30)
--- NOTE | 2022-11-02 06:40 | ED General ---
General Stated Complaint: DIZZYNESS|WEAKNESS|CLAMMY |HEADACHE Source of Information: Patient (HENRIETTA CARRILLO MD) History of Present Illness Date Seen by Provider: Nov 02, 2022 Time Seen by Provider: 06:19 Initial Comments 67-year-old male presenting with complaints of dizziness since around midnight. He states with any movement of his head or change in position he gets dizzy. He feels like he is weak and clammy. He denies any fall or injury. He notes that he has anemia and is scheduled to see Dr. Velasquez about possible endoscopy since he has a history of colon and rectal cancer. He is not currently receiving chemotherapy or radiation but has had surgery as well as radiation and oral chemotherapy for his cancer in the past. He also has a history of chronic kidney disease. He denies having nausea, vomiting, diarrhea, blood in his stools, blood in his urine, chest pain, abdominal pain, cough, nasal congestion, sore throat, ill contacts. Timing/Duration: 4-6 Hours Severity: Severe Modifying Factors: worse with Movement Associated Systoms: No Chest Pain, No Cough, No Diaphoresis, No Fever/Chills; Headaches, Malaise, Nausea/Vomiting (Nausea but no vomiting); No Rash, No Seizure; Shortness of Air; No Syncope; Weakness (Generalized) (HENRIETTA CARRILLO MD) Allergies and Home Medications Allergies Coded Allergies: No Known Drug Allergies (Unverified , 01/08/21) Patient Home Medication List Home Medication List Reviewed: Yes (HENRIETTA CARRILLO MD) Amlodipine Besylate (Amlodipine Besylate) 10 Mg Tablet, 10 MG PO DAILY, (Reported) Entered as Reported by: MARVA BASHIR on 03/03/21 1336 Ascorbic Acid (Vitamin C) 500 Mg Tablet, 500 MG PO DAILY, (Reported) Entered as Reported by: JAMAICA CHAVEZ on 01/09/21 1145 Cholecalciferol (Vitamin D3) (Vitamin D3) 50 Mcg Capsule, 50 MCG PO DAILY, (Reported) Entered as Reported by: JAMAICA CHAVEZ on 01/09/21 1145 Citalopram Hydrobromide (Citalopram HBr) 20 Mg Tablet, 20 MG PO DAILY, (Reported) Entered as Reported by: GAMAL ROJAS on 01/26/21 1129 Cyanocobalamin (Vitamin B-12) (Vitamin B-12) 1,000 Mcg Capsule, 1,000 MCG PO DAILY, (Reported) Entered as Reported by: JAMAICA CHAVEZ on 01/09/21 1145 Ferrous Sulfate (Ferrous Sulfate) 324 Mg Tablet.dr, 324 MG PO DAILY, (Reported) Entered as Reported by: JAMAICA CHAVEZ on 01/09/21 1145 Hydrochlorothiazide (Hydrochlorothiazide) 25 Mg Tablet, 25 MG PO BID, (Reported) Entered as Reported by: GAMAL ROJAS on 01/27/22 1630 Multivitamin with Minerals (Multivitamins with Minerals) 1 Each Tablet, 1 EACH PO DAILY, (Reported) Entered as Reported by: JAMAICA CHAVEZ on 01/09/21 1145 Pantoprazole Sodium (Pantoprazole Sodium) 40 Mg Tablet.dr, 40 MG PO DAILY, (Reported) Entered as Reported by: GAMAL ROJAS on 01/27/22 1630 Vitamin B Complex/Folic Acid (Vitamin B Complex Tablet) 0.4 Mg Tablet, 0.4 MG PO DAILY, (Reported) Entered as Reported by: GAMAL ROJAS on 01/27/22 1630 Zolpidem Tartrate (Ambien) 5 Mg Tablet, 5 MG PO HS, (Reported) Entered as Reported by: MARVA BASHIR on 03/03/21 1324 Review of Systems Review of Systems Constitutional: see HPI; No diaphoresis; dizziness; No fever; malaise, weakness EENTM: No nose congestion, No throat pain Respiratory: No cough; short of breath Cardiovascular: No edema, No palpitations Gastrointestinal: No abdominal pain, No constipation, No diarrhea, No melena, No nausea, No vomiting Genitourinary: No dysuria Musculoskeletal: no symptoms reported Skin: No rash Psychiatric/Neurological: See HPI, Headache (HENRIETTA CARRILLO MD) Past Krnetyl-Kmphwo-Tgneei Hx Immunizations Up To Date Tetanus Booster (TDap): Unknown First/Initial COVID19 Vaccinat: JUNE 2020 Second COVID19 Vaccination Glenn: JUNE 2020 Third COVID19 Vaccination Date: JUNE 2020 (HENRIETTA CARRILLO MD) Seasonal Allergies Seasonal Allergies: No (HENRIETTA CARRILLO MD) Past Medical History Surgeries: Yes (HAND SURGERY (CYST REMOVED) ) Orthopedic, Vasectomy Respiratory: No Cardiac: Yes Hypertension Neurological: Yes (HISTORY OF MIGRAINES) Headaches /Migraines Genitourinary: No Gastrointestinal: No Musculoskeletal: No Endocrine: No HEENT: Yes (WEARS GLASSES) Loss of Vision: Denies Hearing Impairment: Denies Cancer: Yes (CURRENT) Rectal Psychosocial: Yes Sleep Difficulties, Anxiety, Depression Integumentary: No Blood Disorders: No Adverse Reaction/Blood Tranf: Yes (HAS HAD BLOOD TRANSFUSION WITH NO ISSUES) (HENRIETTA CARRILLO MD) Family Medical History Diabetes, Other Conditions/Hx (HENRIETTA CARRILLO MD) Physical Exam Vital Signs Vital Signs - First Documented 11/02/22 06:19 Temp 36.3 Pulse 66 Resp 18 B/P (MAP) 164/94 (117) Pulse Ox 97 O2 Delivery Room Air (JOHN BYRNE MD) Vital Signs Capillary Refill : (HENRIETTA CARRILLO MD) Height, Weight, BMI Height: '" Weight: lbs. oz. kg; 27.80 BMI Method: General Appearance: WD/WN, Anxious HEENT: PERRL/EOMI, Pharynx Normal, Moist Mucous Membranes Neck: Full Range of Motion, Normal Inspection, Non Tender, Supple Respiratory: Chest Non Tender, Lungs Clear, Normal Breath Sounds, No Accessory Muscle Use, No Respiratory Distress Cardiovascular: Regular Rate, Rhythm, Normal Peripheral Pulses Gastrointestinal: Normal Bowel Sounds, No Pulsatile Mass, Non Tender, Soft Rectal: Deferred Extremity: Normal Capillary Refill, Normal Inspection, No Pedal Edema Neurologic/Psychiatric: Alert, Oriented x3, restaurant manager II-XII Norm as Tested Skin: Warm/Dry, Pallor (HENRIETTA CARRILLO MD) Progress/Results/Core Measures Suspected Sepsis SIRS Temperature: Pulse: Respiratory Rate: Laboratory Tests 11/02/22 06:26: White Blood Count 6.5 Blood Pressure / Mean: Laboratory Tests 11/02/22 06:26: Creatinine 1.45H, INR Comment 0.9, Platelet Count 284, Total Bilirubin 0.3 (HENRIETTA CARRILLO MD) Results/Orders Lab Results Laboratory Tests Test 11/02/22 06:24 11/02/22 06:26 11/02/22 07:03 Range/Units Glucometer 119 H 70-110 MG/DL White Blood Count 6.5 4.3-11.0 10^3/uL Red Blood Count 4.40 4.30-5.52 10^6/uL Hemoglobin 9.1 L 13.3-17.7 g/dL Hematocrit 31 L 40-54 % Mean Corpuscular Volume 71 L 80-99 fL Mean Corpuscular Hemoglobin 21 L 25-34 pg Mean Corpuscular Hemoglobin Concent 29 L 32-36 g/dL Red Cell Distribution Width 18.2 H 10.0-14.5 % Platelet Count 284 130-400 10^3/uL Mean Platelet Volume 10.4 9.0-12.2 fL Immature Granulocyte % (Auto) 0 % Neutrophils (%) (Auto) 70 42-75 % Lymphocytes (%) (Auto) 16 12-44 % Monocytes (%) (Auto) 8 0-12 % Eosinophils (%) (Auto) 4 0-10 % Basophils (%) (Auto) 1 0-10 % Neutrophils # (Auto) 4.5 1.8-7.8 10^3/uL Lymphocytes # (Auto) 1.1 1.0-4.0 10^3/uL Monocytes # (Auto) 0.5 0.0-1.0 10^3/uL Eosinophils # (Auto) 0.3 0.0-0.3 10^3/uL Basophils # (Auto) 0.1 0.0-0.1 10^3/uL Immature Granulocyte # (Auto) 0.0 0.0-0.1 10^3/uL Prothrombin Time 12.7 12.2-14.7 SEC INR Comment 0.9 0.8-1.4 Activated Partial Thromboplast Time 27 24-35 SEC Sodium Level 136 135-145 MMOL/L Potassium Level 4.3 3.6-5.0 MMOL/L Chloride Level 102 98-107 MMOL/L Carbon Dioxide Level 22 21-32 MMOL/L Anion Gap 12 5-14 MMOL/L Blood Urea Nitrogen 18 7-18 MG/DL Creatinine 1.45 H 0.60-1.30 MG/DL Estimat Glomerular Filtration Rate 53 BUN/Creatinine Ratio 12 Glucose Level 126 H 70-105 MG/DL Calcium Level 8.7 8.5-10.1 MG/DL Corrected Calcium 8.7 8.5-10.1 MG/DL Magnesium Level 2.2 1.6-2.4 MG/DL Total Bilirubin 0.3 0.1-1.0 MG/DL Aspartate Amino Transf (AST/SGOT) 16 5-34 U/L Alanine Aminotransferase (ALT/SGPT) 5 0-55 U/L Alkaline Phosphatase 68 40-136 U/L Troponin I < 0.30 <0.30 NG/ML Pro-B-Type Natriuretic Peptide 139.2 H <125.0 PG/ML Total Protein 6.6 6.4-8.2 GM/DL Albumin 4.0 3.2-4.5 GM/DL Lipase 44 8-78 U/L Serum Alcohol < 10 <10 MG/DL SARS-CoV-2 RNA (RT-PCR) Not Detected Not Detecte (JOHN BYRNE MD) Vital Signs/I&O 11/02/22 06:19 Temp 36.3 Pulse 66 Resp 18 B/P (MAP) 164/94 (117) Pulse Ox 97 O2 Delivery Room Air (JOHN BYRNE MD) Vital Signs/I&O Capillary Refill : (HENRIETTA CARRILLO MD) Progress Note #1: Progress Note Potential diagnosis of vertigo, stroke, myocardial infarction, pneumonia, anemia, electrolyte imbalance, dehydration, UTI. Obtain peripheral IV access and send labs for complete blood count, comprehensive metabolic profile, coagulation factors, magnesium, troponin, proBNP, lipase. Send urine for urinalysis to look at hydration and look for infection. CT scan of the head to evaluate his complaint of dizziness and headache. 1 view chest x-ray to look for signs of pneumonia, pleural effusion, mass. Administer normal saline 1 L IV fluid bolus for hydration, meclizine 25 mg p.o. for dizziness, Zofran 4 mg IV for nausea. Progress Note #2: Time: 07:00 Progress Note On my personal interpretation and review of his 1 view chest x-ray did not show any acute process. Also along his CT scan of the head without IV contrast I did not appreciate any acute fracture, hemorrhage, mass, stroke. His complete blood count showed a normal white blood cell count of 6.5 and his anemia was stable with a hemoglobin of 9.1 similar to October 27. His fluids and medicine are continuing to infuse. Awaiting radiology reading and rest of his labs. Care passed to Dr. Byrne at shift change pending final results and disposition. (HENRIETTA CARRILLO MD) Progress Note : Progress Note Received the patient in signout pending final radiology reads and lab work. His hemoglobin is 9.1 which is where he was most recently, is not trending down. He still in the is lower than he was in the past, likely does be due to some symptoms that he is feeling. His COVID test was negative, white blood cell count normal, creatinine around his baseline. CT head with no obvious stroke. Chest x-ray clear with no acute abnormalities. I reassessed the patient after the fluids and medications, he states he is closer to his baseline. I did a quick repeat neuro exam, he has a nonfocal exam with no signs of stroke. I believe he is otherwise stable for discharge with outpatient follow-up. Prescriptions will be sent for meclizine as well as Zofran. He was discharged home in stable condition with strict return precautions (JOHN BYRNE MD) ECG Initial ECG Impression Date: Nov 02, 2022 Initial ECG Impression Time: 06:33 Initial ECG Rate: 56 Initial ECG Rhythm: Normal Sinus Initial ECG Comparisson: Unchanged Comment Based on my personal interpretation and review his electrocardiogram shows sinus rhythm with a heart rate of 56 bpm. NC interval 163 ms. He has nonspecific T wave flattening. QT interval 422 ms and a QTc interval 414 ms. He has no significant change from prior tracing done February 28, 2020. (HENRIETTA CARRILLO MD) Diagnostic Imaging Diagonstic Imaging: Xray Plain Films/CT/US/NM/MRI: chest Diagonstic Imaging: CT Plain Films/CT/US/NM/MRI: head (HENRIETTA CARRILLO MD) Departure Impression Primary Impression: Dizziness Disposition: 01 HOME, SELF-CARE Condition: Improved Departure-Patient Inst. Decision time for Depature: 08:00 (JOHN BYRNE MD) Referrals: NO,LOCAL PHYSICIAN (PCP/Family) Primary Care Physician Patient Instructions: Dizziness, Adult ED Add. Discharge Instructions: It is hard to say exactly what the cause of the symptoms were, it is likely due to a mixture of being more anemic versus mildly dehydrated. Your hemoglobin today was 9.1 which is where it was the other day as well which is reassuring. Please be sure to follow back up with the surgeon as you stated. Medications will be sent to the pharmacy to help with dizziness and nausea. Scripts Ondansetron (Ondansetron Odt) 4 Mg Tab.rapdis 4 MG SL Q6H PRN for NAUSEA/VOMITING for 5 Days, #20 TAB Prov: JOHN BYRNE MD 11/02/22 Meclizine HCl (Meclizine HCl) 25 Mg Tablet 25 MG PO BID PRN for DIZZINESS for 7 Days, #14 TAB Prov: JOHN BYRNE MD 11/02/22 Work/School Note: Work Release Form Date Seen in the Emergency Department: Nov 02, 2022 Return to Work: Nov 03, 2022 Restrictions: No Restrictions HENRIETTA CARRILLO MD Nov 02, 2022 06:40 JOHN BYRNE MD Nov 02, 2022 07:52
[2022-11-02 06:42] LABS: BASOPHILS # (AUTO) 0.1 10^3/uL (0.0-0.1); BASOPHILS % (AUTO) 1 % (0-10); EOSINOPHILS # (AUTO) 0.3 10^3/uL (0.0-0.3); EOSINOPHILS % (AUTO) 4 % (0-10); HEMATOCRIT 31 % (40-54); HEMOGLOBIN 9.1 g/dL (13.3-17.7); LYMPHOCYTES # (AUTO) 1.1 10^3/uL (1.0-4.0); LYMPHOCYTES % (AUTO) 16 % (12-44); MEAN CORPUSCULAR HEMOGLOBIN 21 pg (25-34); MEAN CORPUSCULAR HGB CONC 29 g/dL (32-36); MEAN CORPUSCULAR VOLUME 71 fL (80-99); MEAN PLATELET VOLUME 10.4 fL (9.0-12.2); MONOCYTES # (AUTO) 0.5 10^3/uL (0.0-1.0); MONOCYTES % (AUTO) 8 % (0-12); NEUTROPHILS # (AUTO) 4.5 10^3/uL (1.8-7.8); NEUTROPHILS % (AUTO) 70 % (42-75); PLATELET COUNT 284 10^3/uL (130-400); WHITE BLOOD COUNT 6.5 10^3/uL (4.3-11.0)
[2022-11-02 07:01] LABS: BUN/CREATININE RATIO 12; CARBON DIOXIDE 22 MMOL/L (21-32); CHLORIDE 102 MMOL/L (98-107); CREATININE SERUM 1.45 MG/DL (0.60-1.30); GFR ESTIMATED 53; POTASSIUM 4.3 MMOL/L (3.6-5.0); SODIUM 136 MMOL/L (135-145)
[2022-11-02 07:02] LABS: ALANINE AMINOTRANSFERASE 5 U/L (0-55); ALKALINE PHOSPHATASE 68 U/L (40-136); BILIRUBIN,TOTAL 0.3 MG/DL (0.1-1.0); CALCIUM 8.7 MG/DL (8.5-10.1); GLUCOSE 126 MG/DL (70-105); LIPASE 44 U/L (8-78); MAGNESIUM 2.2 MG/DL (1.6-2.4); TOTAL PROTEIN 6.6 GM/DL (6.4-8.2)
--- NOTE | 2022-11-02 07:02 | Diagnostic Imaging Report ---
EXAMINATION: CT head without contrast. TECHNIQUE: Multiple contiguous axial images were obtained through the brain without the use of intravenous contrast. All CT scans use one or more of the following dose optimizing techniques: automated exposure control, MA and/or KvP adjustment based on patient size and exam type or iterative reconstruction. HISTORY: Dizziness COMPARISON: None available. FINDINGS: The ventricles and sulci are normal. No abnormal attenuation of brain parenchyma is present. No acute intracranial hemorrhage or abnormal extra-axial fluid collections are present. No hyperdense vessel. The calvarium is intact. The mastoid air cells are clear. Surgical changes of the maxillary sinuses. Mild mucosal thickening of the ethmoid sinuses. The orbits are normal. IMPRESSION: 1. No acute intracranial abnormality. Dictated by: Dictated on workstation # [id number]
--- NOTE | 2022-11-02 07:02 | Diagnostic Imaging Report ---
EXAMINATION: Chest 1 view HISTORY: short of breath, dizzy, weak COMPARISON: 03/05/2021 FINDINGS: Heart size and pulmonary vasculature are normal. The lungs are clear without consolidation, pleural effusion, or pneumothorax. The osseous structures are intact. Right-sided portacatheter is present. Prominent retrocardiac opacities unchanged likely a hiatal hernia. IMPRESSION: 1. No acute radiographic abnormality in the chest. Dictated by: Dictated on workstation # [id number]
[2022-11-02 07:06] LABS: INR 0.9 (0.8-1.4); PROTHROMBIN TIME PATIENT 12.7 SEC (12.2-14.7)
[2022-11-02] MEDS ORDERED: MECL-149 PO (07:52)
[2022-11-02] MEDS ORDERED: ONDA4TAB11 SL (07:52)
== END 2022-11-02 08:13 | disposition home or self-care (01) ==
LOC: EDUNIT# 06:14 → ER FS 06:17
DX: R42 Dizziness and giddiness (principal); Z20.822 Contact with and (suspected) exposure to COVID-19
CPT/HCPCS: 36415; 70450; 71045; 80053; 80320; 82947; 83690; 83735; 83880; 84484; 85025; 85610; 85730; 87636; 93005; 93041

== ENCOUNTER 2022-11-23 07:25 | Day surgery (SDC) | payer OTHER ==
[~2022-11-23] VITALS: Ht 182.9 cm; Wt 100.7 kg
[~2022-11-23 07:25] MED LIST changes: +MECL-149 PO; +ONDA4TAB11 SL
[2022-11-23] MEDS ORDERED: LACTATED RINGERS 1,000 ML IV STA (07:43)
[2022-11-23] MEDS ORDERED: HURRICAINE EXT TUBE (BENZOCAINE) XX PRN (07:45)
[2022-11-23 07:51] VITALS: BP 146/106
[2022-11-23] MEDS ORDERED: PROPOFOL INJECTION 50 ML IV ONE (08:15)
--- NOTE | 2022-11-23 08:47 | Progress Note-Pre Operative ---
Pre-Operative Progress Note Date H&P Reviewed: Nov 23, 2022 Time H&P Reviewed: 08:37 History & Physical: H&P Reviewed, Patient Examed, No changes noted Pre-Operative Diagnosis: iron def anemia, history of colon cancer MARIA ALEJANDRA SINGER DO Nov 23, 2022 08:46
--- NOTE | 2022-11-23 09:16 | Anesthesia-General Post-Op ---
MAC Patient Condition Mental Status/LOC: Same as Preop Cardiovascular: Satisfactory Nausea/Vomiting: Absent Respiratory: Satisfactory Pain: Controlled Complications: Absent Post Op Complications Complications None Follow Up Care/Instructions Patient Instructions None needed. Anesthesiology Discharge Order Discharge Order Patient is doing well, no complaints, stable vital signs, no apparent adverse anesthesia problems. No complications reported per nursing. SAMEER COLLIER CRNA Nov 23, 2022 09:16
--- NOTE | 2022-11-23 09:18 | Progress Note-Post Operative ---
Post-Operative Progess Note Surgeon (s)/Bottom Presser (s) Surgeon MARIA ALEJANDRA SINGER DO Bottom Presser: NA Pre-Operative Diagnosis iron def anemia, history of colon cancer Post-Operative Diagnosis Gastritis Normal Colon Hiatal Hernia Procedure & Operative Findings Date of Procedure 11/23/22 Procedure Performed/Findings EGD with biopsy Colonoscopy Anesthesia Type Per RELAY CHECKER Estimated Blood Loss Estimated blood loss (mL): None Specimens/Packing Specimens Removed Antrum MARIA ALEJANDRA SINGER DO Nov 23, 2022 09:18
[2022-11-23] MEDS ORDERED: SUCR1TAB36 PO ×2 (09:19)
--- NOTE | 2022-11-23 09:19 | Discharge Inst-Simple/Standard ---
Discharge Inst-Standard Discharge Medications New, Converted or Re-Newed RX: Transmitted to Pharmacy Patient Instructions/Follow Up Plan of Care/Instructions/FU: Two weeks Ron Activity as Tolerated: Yes Discharge Diet: Regular Diet MARIA ALEJANDRA SINGER DO Nov 23, 2022 09:19
[2022-11-23 09:20] VITALS: BP 97/65
[2022-11-23 09:25] VITALS: BP 112/70
[2022-11-23 10:02] VITALS: BP 112/70
--- NOTE | 2022-11-23 16:15 | OPERATIVE REPORT ---
DATE OF SERVICE: 11/23/2022 PREOPERATIVE DIAGNOSES: Iron deficiency anemia, history of colon cancer. POSTOPERATIVE DIAGNOSES: Gastritis, hiatal hernia, normal colon. PROCEDURE: EGD with biopsy, colonoscopy. SURGEON: Maria Alejandra Velasquez DO ANESTHESIA: Per [employer]. ESTIMATED BLOOD LOSS: None. COMPLICATIONS: None. SPECIMENS: Antrum. INDICATIONS: The patient is a 67-year-old male with history of colon cancer. He has also iron deficiency anemia. He understands risks and benefits of procedure and wished to proceed. Consent was signed in chart. DESCRIPTION OF PROCEDURE: The patient was taken to the endoscopy suite, placed in left lateral recumbent position. Timeout was performed. Scope was inserted in the mouth, down the esophagus, stomach, into the duodenum without difficulty. No polyps, masses or ulcerations in the duodenum. Scope was slowly retracted back into stomach where it was further insufflated. Gastritis appearance throughout the stomach. Biopsy of the antrum was obtained. No polyps, masses or ulcerations. Scope was retroflexed noting hiatal hernia, moderate to large size. No other pathology. Scope was returned to its normal position, slowly withdrawn until distal esophagus, which had normal appearance, no polyps, masses or ulcerations. Scope was slowly retracted back until completely removed, noting no other pathology. Digital rectal exam was performed. No palpable polyps, masses or ulcerations. Scope was inserted in the rectum and advanced all the way to the way to the cecum without difficulty. No polyps, masses or ulcerations. Scope was slowly retracted back. Prep was adequate. No polyps, masses or ulcerations in cecum, ascending, transverse, descending and sigmoid colon. The anastomosis was visualized and had normal appearance. Scope was inserted and retracted multiple times and then slowly retracted until completely removed. The patient tolerated the procedure well, no complications, taken to recovery in stable condition. RECOMMENDATIONS: The patient will need repeat colonoscopy once a year in 5 years postop his colon resection. We will add Carafate 1 gram 4 times a day. He is already on Protonix. He will follow up in a couple of weeks in the office. Job ID: [id number] DocumentID: [id number] Dictated Date: 11/23/2022 09:22:46 Director Government Date: 11/23/2022 16:13:00 Dictated By: MARIA ALEJANDRA VELASQUEZ DO
== END 2022-11-23 10:12 | disposition home or self-care (01) ==
LOC: ENDO 07:25
PROVIDERS: ATTEND Surgery
DX: Z12.11 Encounter for screening for malignant neoplasm of colon (principal); K29.70 Gastritis, unspecified, without bleeding; K44.9 Diaphragmatic hernia without obstruction or gangrene; D50.9 Iron deficiency anemia, unspecified; E66.9 Obesity, unspecified; Z85.038 Personal history of other malignant neoplasm of large intestine; Z98.0 Intestinal bypass and anastomosis status; Z87.891 Personal history of nicotine dependence; Z68.30 Body mass index [BMI] 30.0-30.9, adult

== ENCOUNTER 2022-11-25 15:35 | Emergency (ER) | payer OTHER ==
[~2022-11-25] VITALS: Ht 182.9 cm; Wt 98.9 kg
[~2022-11-25 15:35] MED LIST changes: +SUCR1TAB36 PO
[2022-11-25 15:53] VITALS: BP_SYST 107; BP_SYST 127; BP_SYST 134; BP_DIAS 63; BP_DIAS 69; BP_DIAS 73
[2022-11-25 15:53] LABS: BASOPHILS # (AUTO) 0.1 10^3/uL (0.0-0.1); BASOPHILS % (AUTO) 1 % (0-10); EOSINOPHILS # (AUTO) 0.2 10^3/uL (0.0-0.3); EOSINOPHILS % (AUTO) 3 % (0-10); HEMATOCRIT 28 % (40-54); HEMOGLOBIN 7.9 g/dL (13.3-17.7); LYMPHOCYTES # (AUTO) 1.5 10^3/uL (1.0-4.0); LYMPHOCYTES % (AUTO) 22 % (12-44); MEAN CORPUSCULAR HEMOGLOBIN 20 pg (25-34); MEAN CORPUSCULAR HGB CONC 28 g/dL (32-36); MEAN CORPUSCULAR VOLUME 71 fL (80-99); MEAN PLATELET VOLUME 10.3 fL (9.0-12.2); MONOCYTES # (AUTO) 0.8 10^3/uL (0.0-1.0); MONOCYTES % (AUTO) 11 % (0-12); NEUTROPHILS # (AUTO) 4.2 10^3/uL (1.8-7.8); NEUTROPHILS % (AUTO) 62 % (42-75); PLATELET COUNT 302 10^3/uL (130-400); WHITE BLOOD COUNT 6.7 10^3/uL (4.3-11.0)
[2022-11-25 16:04] LABS: INR 0.9 (0.8-1.4); PROTHROMBIN TIME PATIENT 12.8 SEC (12.2-14.7)
--- NOTE | 2022-11-25 16:08 | ED Cardiac General ---
History of Present Illness General Chief Complaint: Cardiac/General Problems Stated Complaint: HYPOTENSION Nursing Triage Note: PT TO ROOM FS05 VIA [facility] WITH C/O HYPOTENSION. DR RITTER AT [facility] IN [place] STATES THAT PT ARRIVED AT CLINIC AND "COLLAPSED". STONE REPORTS PT SYSTOLIC BP IN THE 70S THAT INCREASED TO 110 UPON MOVING THE PT. Source: patient, family (Brother), EMS, RN notes reviewed, EMS notes reviewed, old records Exam Limitations: no limitations History of Present Illness Date Seen by Provider: Nov 25, 2022 Time Seen by Provider: 15:42 Initial Comments 67-year-old male patient with history of hypertension, hyperlipidemia, depression and anxiety, hiatal hernia, chronic kidney disease stage III, GERD, anemia, colon cancer status post surgery and radiation/chemotherapy brought in by EMS from doctor office because of syncopal episode. Patient was sitting in bed and did not like her office and felt dizzy and diaphoretic and shortness of breath and then had a syncopal episode that lasted about 10 seconds without seizure activity. EMS reported that they did a sternal rub to get response from him. Patient stated he has had episode of bright blood in his stool intermittently for the last few months and his hemoglobin dropped to 9.1 and 8.7 and had dizziness and near syncope with change of the position and was seen in this emergency room 2 weeks ago with work-up for dizziness. Patient had colonoscopy 3 days ago because of anemia with pending result. Patient denies chest pain, focal neurodeficit, fever or chills, headache and change of vision, abdominal pain, nausea and vomiting. Patient complaining of chronic constipation with having bowel movement every 3 days. Patient had blood pressure of 70s at doctor office and 80s by EMS. Patient had blood pressure of 90s at arrival to ER that increased to more than 100 with rest and continued IV fluid started by EMS. Allergies and Home Medications Allergies Coded Allergies: No Known Drug Allergies (Unverified , 01/08/21) Patient Home Medication List Home Medication List Reviewed: Yes Amlodipine Besylate (Amlodipine Besylate) 10 Mg Tablet, 10 MG PO DAILY, (Reported) Entered as Reported by: MARVA BASHIR on 03/03/21 1336 Ascorbic Acid (Vitamin C) 500 Mg Tablet, 500 MG PO DAILY, (Reported) Entered as Reported by: JAMAICA CHAVEZ on 01/09/21 1145 Cholecalciferol (Vitamin D3) (Vitamin D3) 50 Mcg Capsule, 50 MCG PO DAILY, (Reported) Entered as Reported by: JAMAICA CHAVEZ on 01/09/21 1145 Citalopram Hydrobromide (Citalopram HBr) 20 Mg Tablet, 20 MG PO DAILY, (Reported) Entered as Reported by: GAMAL ROJAS on 01/26/21 1129 Cyanocobalamin (Vitamin B-12) (Vitamin B-12) 1,000 Mcg Capsule, 1,000 MCG PO DAILY, (Reported) Entered as Reported by: JAMAICA CHAVEZ on 01/09/21 1145 Ferrous Sulfate (Ferrous Sulfate) 324 Mg Tablet.dr, 324 MG PO DAILY, (Reported) Entered as Reported by: JAMAICA CHAVEZ on 01/09/21 1145 Hydrochlorothiazide (Hydrochlorothiazide) 25 Mg Tablet, 25 MG PO BID, (Reported) Entered as Reported by: GAMAL ROJAS on 01/27/22 1630 Meclizine HCl (Meclizine HCl) 25 Mg Tablet, 25 MG PO BID PRN for DIZZINESS Prescribed by: JOHN BYRNE on 11/02/22 0752 Multivitamin with Minerals (Multivitamins with Minerals) 1 Each Tablet, 1 EACH PO DAILY, (Reported) Entered as Reported by: JAMAICA CHAVEZ on 01/09/21 1145 Ondansetron (Ondansetron Odt) 4 Mg Tab.rapdis, 4 MG SL Q6H PRN for NAUSEA/VOMITING Prescribed by: JOHN BYRNE on 11/02/22 0752 Pantoprazole Sodium (Pantoprazole Sodium) 40 Mg Tablet.dr, 40 MG PO DAILY, (Reported) Entered as Reported by: GAMAL ROJAS on 01/27/22 1630 Sucralfate (Carafate) 1 Gram Tablet, 1 GM PO QID Prescribed by: MARIA ALEJANDRA SINGER on 11/23/22 0919 Vitamin B Complex/Folic Acid (Vitamin B Complex Tablet) 0.4 Mg Tablet, 0.4 MG PO DAILY, (Reported) Entered as Reported by: GAMAL ROJAS on 01/27/22 1630 Zolpidem Tartrate (Ambien) 5 Mg Tablet, 5 MG PO HS, (Reported) Entered as Reported by: MARVA BASHIR on 03/03/21 1324 Review of Systems Review of Systems Constitutional: see HPI EENTM: No Symptoms Reported Respiratory: See HPI Cardiovascular: No Symptoms Reported Gastrointestinal: See HPI Genitourinary: No Symptoms Reported Musculoskeletal: no symptoms reported Skin: no symptoms reported Psychiatric/Neurological: See HPI Endocrine: No Symptoms Reported Hematologic/Lymphatic: See HPI All Other Systems Reviewed Negative Unless Noted: Yes Past Vdkfdwa-Djbuvt-Bpuecf Hx Patient Social History Tobacco Use?: No Smoking Status: Never a Smoker Smokeless Tobacco Frequency: Never a User Use of E-Cig and/or Vaping dev: No Use of E-Cig and/or Vaping Rosendo: Never a User Substance use?: No Alcohol Use?: Yes Alcohol Frequency: Once in a while Pt feels they are or have been: No Immunizations Up To Date Tetanus Booster (TDap): Unknown First/Initial COVID19 Vaccinat: JUNE 2020 Second COVID19 Vaccination Glenn: JUNE 2020 Third COVID19 Vaccination Date: JUNE 2020 Seasonal Allergies Seasonal Allergies: No Past Medical History Surgery/Hospitalization HX: Colorectal CA: surgery, XRT, oral chemo; CKD Stage 3, GERD, Hiatal Hernia, Hx lower GI bleed, Depression/SI Surgeries: Yes (HAND SURGERY (CYST REMOVED), COLON RESECTION) Abdominal, Orthopedic, Vasectomy Respiratory: No Cardiac: Yes High Cholesterol, Hypertension Neurological: Yes (HISTORY OF MIGRAINES) Headaches /Migraines Genitourinary: No Gastrointestinal: No Musculoskeletal: No Endocrine: No HEENT: Yes (WEARS GLASSES) Loss of Vision: Denies Hearing Impairment: Denies Cancer: Yes (CURRENT) Rectal, Colon What Type of Treatment Did You: Chemotherapy, Radiation, Surgical Intervention Psychosocial: Yes Sleep Difficulties, Anxiety, Depression Integumentary: No Blood Disorders: No Adverse Reaction/Blood Tranf: Yes (HAS HAD BLOOD TRANSFUSION WITH NO ISSUES) Family Medical History Diabetes, Other Conditions/Hx Physical Exam Vital Signs Vital Signs - First Documented 11/25/22 15:35 Temp 36.7 Pulse 63 Resp 14 B/P (MAP) 96/56 (69) O2 Delivery Room Air Capillary Refill : Less Than 3 Seconds Height, Weight, BMI Height: '" Weight: lbs. oz. kg; 29.00 BMI Method: General Appearance: Mild Distress HEENT: PERRL/EOMI, Pharynx Normal, Pale Conjunctivae (R) Neck: Full Range of Motion, Normal Inspection Respiratory: Chest Non Tender, Lungs Clear, Normal Breath Sounds, No Accessory Muscle Use Cardiovascular: Regular Rate, Rhythm, No Edema, No Gallop, No JVD Gastrointestinal: Normal Bowel Sounds, No Organomegaly, No Pulsatile Mass Extremity: Normal Capillary Refill, Normal Inspection, Normal Range of Motion Neurologic/Psychiatric: Alert, Oriented x3, No Motor/Sensory Deficits, Normal Mood/Affect Skin: Warm/Dry Focused Exam Lactate Level 11/25/22 16:00: Lactic Acid Level 1.05 Lactic Acid Level Laboratory Tests Test 11/25/22 16:00 Lactic Acid Level 1.05 MMOL/L (0.50-2.00) Progress/Results/Core Measures Results/Orders Lab Results Laboratory Tests Test 11/25/22 15:43 11/25/22 16:00 11/25/22 16:02 Range/Units White Blood Count 6.7 4.3-11.0 10^3/uL Red Blood Count 3.93 L 4.30-5.52 10^6/uL Hemoglobin 7.9 L 13.3-17.7 g/dL Hematocrit 28 L 40-54 % Mean Corpuscular Volume 71 L 80-99 fL Mean Corpuscular Hemoglobin 20 L 25-34 pg Mean Corpuscular Hemoglobin Concent 28 L 32-36 g/dL Red Cell Distribution Width 18.2 H 10.0-14.5 % Platelet Count 302 130-400 10^3/uL Mean Platelet Volume 10.3 9.0-12.2 fL Immature Granulocyte % (Auto) 0 % Neutrophils (%) (Auto) 62 42-75 % Lymphocytes (%) (Auto) 22 12-44 % Monocytes (%) (Auto) 11 0-12 % Eosinophils (%) (Auto) 3 0-10 % Basophils (%) (Auto) 1 0-10 % Neutrophils # (Auto) 4.2 1.8-7.8 10^3/uL Lymphocytes # (Auto) 1.5 1.0-4.0 10^3/uL Monocytes # (Auto) 0.8 0.0-1.0 10^3/uL Eosinophils # (Auto) 0.2 0.0-0.3 10^3/uL Basophils # (Auto) 0.1 0.0-0.1 10^3/uL Immature Granulocyte # (Auto) 0.0 0.0-0.1 10^3/uL Prothrombin Time 12.8 12.2-14.7 SEC INR Comment 0.9 0.8-1.4 Activated Partial Thromboplast Time 25 24-35 SEC Sodium Level 137 135-145 MMOL/L Potassium Level 3.6 3.6-5.0 MMOL/L Chloride Level 105 98-107 MMOL/L Carbon Dioxide Level 21 21-32 MMOL/L Anion Gap 11 5-14 MMOL/L Blood Urea Nitrogen 18 7-18 MG/DL Creatinine 1.91 H 0.60-1.30 MG/DL Estimat Glomerular Filtration Rate 38 BUN/Creatinine Ratio 9 Glucose Level 119 H 70-105 MG/DL Calcium Level 8.7 8.5-10.1 MG/DL Corrected Calcium 8.9 8.5-10.1 MG/DL Magnesium Level 2.1 1.6-2.4 MG/DL Total Bilirubin 0.3 0.1-1.0 MG/DL Aspartate Amino Transf (AST/SGOT) 9 5-34 U/L Alanine Aminotransferase (ALT/SGPT) 7 0-55 U/L Alkaline Phosphatase 62 40-136 U/L Troponin I < 0.30 <0.30 NG/ML Pro-B-Type Natriuretic Peptide 94.2 <125.0 PG/ML Total Protein 6.0 L 6.4-8.2 GM/DL Albumin 3.7 3.2-4.5 GM/DL Lactic Acid Level 1.05 0.50-2.00 MMOL/L Urine Color YELLOW Urine Clarity CLEAR Urine pH 6.0 5-9 Urine Specific Slaughters 1.015 L 1.016-1.022 Urine Protein 1+ H NEGATIVE Urine Glucose (UA) NEGATIVE NEGATIVE Urine Ketones NEGATIVE NEGATIVE Urine Nitrite NEGATIVE NEGATIVE Urine Bilirubin NEGATIVE NEGATIVE Urine Urobilinogen 0.2 < = 1.0 MG/DL Urine Leukocyte Esterase NEGATIVE NEGATIVE Urine RBC (Auto) NEGATIVE NEGATIVE Urine RBC NONE /HPF Urine WBC NONE /HPF Urine Crystals NONE /LPF Urine Bacteria NEGATIVE /HPF Urine Casts NONE /LPF Urine Mucus SMALL H /LPF Urine Culture Indicated NO My Orders Orders - CHRISTOPHER STEWART MD Cbc With Automated Diff (11/25/22 15:44) Comprehensive Metabolic Panel (11/25/22 15:44) Urinalysis (11/25/22 15:44) Protime With Inr (11/25/22 15:44) Partial Thromboplastin Time (11/25/22 15:44) Ed Iv/Invasive Line Start (11/25/22 15:44) Lactic Acid Analyzer (11/25/22 15:44) Orthostatic Vital Signs (Adult (11/25/22 15:44) Ekg Tracing (11/25/22 15:55) Magnesium (11/25/22 15:43) Probnp Fs (11/25/22 15:43) Troponin I Fs (11/25/22 15:43) Ct Head Wo (11/25/22 16:11) Ct Abdomen/Pelvis Wo (11/25/22 16:11) Chest 1 View Ap/Pa Only (11/25/22 16:11) Vital Signs/I&O 11/25/22 11/25/22 15:35 15:53 Temp 36.7 Pulse 63 Resp 14 B/P (MAP) 96/56 (69) 107/63 (78) 134/73 (93) 127/69 (88) O2 Delivery Room Air Blood Pressure Mean: 88 Progress Progress Note : Time: 16:20 Progress Note Orthostatic vital sign was negative. Patient ambulated without problem. Patient with syncopal episode at doctor office with resolving the problem at arrival to ER with negative orthostatic vitals. Patient had history of colon cancer and intermittent episode of rectal fresh bleeding with colonoscopy 2 days ago. CBC, CMP, coagulation panel, troponin, UA was ordered and reviewed by me. Patient had hemoglobin of 9.11-month ago and 8.73 days ago during colonoscopy and today had hemoglobin of 7.9. Patient had chronic renal insufficiency with creatinine of 1.95 that increased from 1.45 in November 02. Otherwise CBC and CMP and troponin and UA was unremarkable. Chest x-ray interpreted by me and did not show acute finding. CT head was interpreted by radiologist and reviewed by me and did not show acute finding. Patient did not have history of syncope but recently had anemia pending results of colonoscopy that was done 3 days ago. I offered patient hospitalization for evaluation of syncope but patient decided to go home and follow-up with his oncologist in 4 days. Patient ambulated without problem and his brother was presented in ER and advised to check on him frequently. Patient advised to return to ER as needed. Initial ECG Impression Date: Nov 25, 2022 Initial ECG Impression Time: 15:41 Initial ECG Rate: 62 Initial ECG Intervals: Normal Initial ECG Intervals EKG interpreted by me. EKG at 1541 showed sinus rhythm at rate of 62, TX interval of 165, QT interval of 376 and QTc interval of 381, QRS duration of 94, nonspecific T abnormality unchanged from EKG dated November 02, no acute ST and T wave elevation. Diagnostic Imaging Diagonstic Imaging: Xray, CT Plain Films/CT/US/NM/MRI: chest, abdomen, head Comments 1 view chest x-ray interpreted by me and showed mild pulmonary congestion. 1 view chest x-ray interpreted by radiologist and reviewed by me and showed: NAME: AYDEE VELAZQUEZ [facility] REC#: [id number] PT STATUS: REG ER : 1955 PHYSICIAN: CHRISTOPHER STEWART MD ADMIT DATE: 11/25/22/ER FS Draft Date of Exam:11/25/22 CHEST 1 VIEW AP/PA ONLY INDICATION: Syncope and hypotension. AP view of the chest is obtained with comparison made to study of 11/02/2022. FINDINGS: Heart size is within normal limits. Pulmonary vascularity is at the upper limits of normal. There is no overt edema. Moderate hiatal hernia is again noted. Right central venous catheter device is in stable position. IMPRESSION: Moderate hiatal hernia with borderline pulmonary venous congestion. Otherwise, no acute abnormality is seen. Dictated on workstation # [id number] Dict: 11/25/22 1637 Trans: 11/25/22 1639 [id number] Interpreted by: SRIDHAR RIVERA MD Electronically signed by: CT abdomen pelvis without contrast interpreted by radiologist and reviewed by me and showed: [facility] [place] [place], [place] NAME: AYDEE VELAZQUEZ [facility] REC#: [id number] PT STATUS: REG ER : 1955 PHYSICIAN: CHRISTOPHER STEWART MD ADMIT DATE: 11/25/22/ER FS Draft Date of Exam:11/25/22 CT ABDOMEN/PELVIS WO EXAMINATION: CT abdomen and pelvis without contrast. TECHNIQUE: Multiple contiguous axial images were obtained through the abdomen and pelvis without the use of intravenous contrast. All CT scans use one or more of the following dose optimizing techniques: Automated exposure control, MA and/or KvP adjustment based on patient size and exam type or iterative reconstruction. HISTORY: Syncope. COMPARISON: 02/19/2021. FINDINGS: Limited views of the lower thorax show a large hiatal hernia. The liver is normal without focal lesion. There is no biliary ductal dilation. Gallbladder is normal. Pancreas is normal. Spleen is normal. Adrenal glands are normal. The kidneys are normal. There is no hydronephrosis. Urinary bladder is normal. There has been a sigmoid colon resection. The appendix is normal. No bowel obstruction or inflammation. No free fluid or air. No abdominal or pelvic lymphadenopathy. Aorta is normal in caliber without aneurysm. There are no suspicious osseous lesions. There are mild L2 and L3 compression fractures, unchanged. IMPRESSION: 1. No acute abnormality in the abdomen or pelvis. Dictated on workstation # [id number] Dict: 11/25/22 1637 Trans: 11/25/22 1642 [id number] Interpreted by: RADHIKA BUSTAMANTE MD Electronically signed by: CT head interpreted by radiologist and reviewed by me and showed: [facility] [place] [place] NAME: AYDEE VELAZQUEZ [facility] REC#: [id number] PT STATUS: REG ER : 1955 PHYSICIAN: CHRISTOPHER STEWART MD ADMIT DATE: 11/25/22/ER FS Draft Date of Exam:11/25/22 CT HEAD WO CLINICAL INDICATION: Patient complains of hypotension. Patient collapsed. Exam: Axial CT scan of the brain without IV contrast with coronal and sagittal reformatted images. Auto Exposure Controls were utilized during the CT exam to meet ALARA standards for radiation dose reduction. COMPARISON: Head CT without contrast dated 11/02/2022. FINDINGS: There is no evidence of acute cerebral infarct, intracranial hemorrhage, or gross mass effect. The brain parenchymal volume appears appropriate for patient's age. There is normal shields-white matter distinction. There is no significant midline shift or herniation. There is no evidence of hydrocephalus. The basal cisterns are unremarkable. Postop changes to the paranasal sinuses are seen. The skull, extracranial soft tissue, and orbits are unremarkable. The paranasal sinuses are unremarkable. Temporal bones show no significant abnormality. IMPRESSION: There is no evidence of acute intracranial process. Dictated on workstation # [id number] Dict: 11/25/22 1636 Trans: 11/25/22 1643 [id number] Interpreted by: NINO FREDERICK MD Electronically signed by: Departure Impression Primary Impression: Syncope Qualified Codes: R55 - Syncope and collapse Additional Impressions: Symptomatic anemia Chronic renal insufficiency, stage III (moderate) Disposition: 01 HOME, SELF-CARE Condition: Improved Departure-Patient Inst. Decision time for Depature: 17:02 Referrals: NO,LOCAL PHYSICIAN (PCP/Family) Primary Care Physician Patient Instructions: Anemia, Possibly From Low Iron, Adult ED, Near Fainting, Syncope (fainting) Add. Discharge Instructions: Drink plenty of liquid Follow-up with your oncology appointment in 4 days Follow-up with your primary care physician or return to ER as needed All discharge instructions reviewed with patient and/or family. Voiced understanding. CHRISTOPHER STEWART MD Nov 25, 2022 16:08
[2022-11-25 16:12] LABS: BILIRUBIN,URINE NEGATIVE (NEGATIVE); CLARITY,URINE CLEAR; COLOR,URINE YELLOW; GLUCOSE, URINE (UA) NEGATIVE (NEGATIVE); KETONES,URINE NEGATIVE (NEGATIVE); LEUKOCYTE ESTERASE ,URINE NEGATIVE (NEGATIVE); NITRITE,URINE NEGATIVE (NEGATIVE); PROTEIN,URINE 1+ (NEGATIVE)
[2022-11-25 16:18] LABS: BACTERIA,URINE NEGATIVE /HPF
[2022-11-25 16:18] LABS: CARBON DIOXIDE 21 MMOL/L (21-32); CHLORIDE 105 MMOL/L (98-107); POTASSIUM 3.6 MMOL/L (3.6-5.0); SODIUM 137 MMOL/L (135-145)
[2022-11-25 16:19] LABS: ALANINE AMINOTRANSFERASE 7 U/L (0-55); ALBUMIN 3.7 GM/DL (3.2-4.5); ALKALINE PHOSPHATASE 62 U/L (40-136); BILIRUBIN,TOTAL 0.3 MG/DL (0.1-1.0); BUN/CREATININE RATIO 9; CALCIUM 8.7 MG/DL (8.5-10.1); CREATININE SERUM 1.91 MG/DL (0.60-1.30); GFR ESTIMATED 38; GLUCOSE 119 MG/DL (70-105); MAGNESIUM 2.1 MG/DL (1.6-2.4)
--- NOTE | 2022-11-25 16:39 | Diagnostic Imaging Report ---
INDICATION: Syncope and hypotension. AP view of the chest is obtained with comparison made to study of 11/02/2022. FINDINGS: Heart size is within normal limits. Pulmonary vascularity is at the upper limits of normal. There is no overt edema. Moderate hiatal hernia is again noted. Right central venous catheter device is in stable position. IMPRESSION: Moderate hiatal hernia with borderline pulmonary venous congestion. Otherwise, no acute abnormality is seen. Dictated by: Dictated on workstation # [id number]
--- NOTE | 2022-11-25 16:42 | Diagnostic Imaging Report ---
EXAMINATION: CT abdomen and pelvis without contrast. TECHNIQUE: Multiple contiguous axial images were obtained through the abdomen and pelvis without the use of intravenous contrast. All CT scans use one or more of the following dose optimizing techniques: Automated exposure control, MA and/or KvP adjustment based on patient size and exam type or iterative reconstruction. HISTORY: Syncope. COMPARISON: 02/19/2021. FINDINGS: Limited views of the lower thorax show a large hiatal hernia. The liver is normal without focal lesion. There is no biliary ductal dilation. Gallbladder is normal. Pancreas is normal. Spleen is normal. Adrenal glands are normal. The kidneys are normal. There is no hydronephrosis. Urinary bladder is normal. There has been a sigmoid colon resection. The appendix is normal. No bowel obstruction or inflammation. No free fluid or air. No abdominal or pelvic lymphadenopathy. Aorta is normal in caliber without aneurysm. There are no suspicious osseous lesions. There are mild L2 and L3 compression fractures, unchanged. IMPRESSION: 1. No acute abnormality in the abdomen or pelvis. Dictated by: Dictated on workstation # [id number]
--- NOTE | 2022-11-25 16:43 | Diagnostic Imaging Report ---
CLINICAL INDICATION: Patient complains of hypotension. Patient collapsed. Exam: Axial CT scan of the brain without IV contrast with coronal and sagittal reformatted images. Auto Exposure Controls were utilized during the CT exam to meet ALARA standards for radiation dose reduction. COMPARISON: Head CT without contrast dated 11/02/2022. FINDINGS: There is no evidence of acute cerebral infarct, intracranial hemorrhage, or gross mass effect. The brain parenchymal volume appears appropriate for patient's age. There is normal shields-white matter distinction. There is no significant midline shift or herniation. There is no evidence of hydrocephalus. The basal cisterns are unremarkable. Postop changes to the paranasal sinuses are seen. The skull, extracranial soft tissue, and orbits are unremarkable. The paranasal sinuses are unremarkable. Temporal bones show no significant abnormality. IMPRESSION: There is no evidence of acute intracranial process. Dictated by: Dictated on workstation # [id number]
== END 2022-11-25 17:10 | disposition home or self-care (01) ==
LOC: EDUNIT# 15:35 → ER FS 15:36
DX: R55 Syncope and collapse (principal); I12.9 Hypertensive chronic kidney disease with stage 1 through stage 4 chronic kidney disease, or unspecified chronic kidney disease; N18.30 Chronic kidney disease, stage 3 unspecified; D63.1 Anemia in chronic kidney disease; C19 Malignant neoplasm of rectosigmoid junction
CPT/HCPCS: 36415; 70450; 71045; 74176; 80053; 81000; 83605; 83735; 83880; 84484; 85025; 85610; 85730; 93005

== ENCOUNTER 2022-12-21 07:38 | Outpatient (RCR) | payer OTHER ==
[2022-12-06 11:14] LABS: BASOPHILS # (AUTO) 0.1 10^3/uL (0.0-0.1); BASOPHILS % (AUTO) 1 % (0-10); EOSINOPHILS # (AUTO) 0.2 10^3/uL (0.0-0.3); EOSINOPHILS % (AUTO) 4 % (0-10); HEMATOCRIT 30 % (40-54); HEMOGLOBIN 8.3 g/dL (13.3-17.7); LYMPHOCYTES # (AUTO) 0.7 10^3/uL (1.0-4.0); LYMPHOCYTES % (AUTO) 15 % (12-44); MEAN CORPUSCULAR HEMOGLOBIN 19 pg (25-34); MEAN CORPUSCULAR HGB CONC 28 g/dL (32-36); MEAN CORPUSCULAR VOLUME 70 fL (80-99); MEAN PLATELET VOLUME 10.4 fL (9.0-12.2); MONOCYTES # (AUTO) 0.4 10^3/uL (0.0-1.0); MONOCYTES % (AUTO) 9 % (0-12); NEUTROPHILS # (AUTO) 3.2 10^3/uL (1.8-7.8); NEUTROPHILS % (AUTO) 71 % (42-75); PLATELET COUNT 287 10^3/uL (130-400); WHITE BLOOD COUNT 4.5 10^3/uL (4.3-11.0)
[2022-12-06 11:33] LABS: BILIRUBIN,TOTAL 0.4 MG/DL (0.1-1.0); CALCIUM 8.5 MG/DL (8.5-10.1); CREATININE SERUM 1.67 MG/DL (0.60-1.30); TOTAL PROTEIN 6.6 GM/DL (6.4-8.2)
[2022-12-14 11:05] VITALS: BP 113/64
[~2022-12-21] VITALS: Ht 182.9 cm; Wt 101.0 kg
[~2022-12-21 07:38] MED LIST changes: +CENTER ONLY IV SCH; +FERRIC CARBOXYMALTOSE IV SCH; +NS IV 500 ML (CANCER CENTER) IV SCH; +NS IV SCH
[2022-12-21 12:46] VITALS: BP 140/82
== END 2022-12-23 | disposition home or self-care (01) ==
LOC: ONC 07:38
PROVIDERS: ATTEND Internal Medicine Hematology & Oncology
DX: Z45.2 Encounter for adjustment and management of vascular access device (principal); C20 Malignant neoplasm of rectum; K44.9 Diaphragmatic hernia without obstruction or gangrene; D64.9 Anemia, unspecified; K92.2 Gastrointestinal hemorrhage, unspecified; K21.9 Gastro-esophageal reflux disease without esophagitis; Z92.21 Personal history of antineoplastic chemotherapy; Z85.038 Personal history of other malignant neoplasm of large intestine
CPT/HCPCS: 80053; 82728; 83540; 83550; 85025; 96365; 96523; 99214

== ENCOUNTER 2023-02-02 11:05 | Outpatient (RCR) | payer OTHER ==
[2023-01-26 10:32] LABS: BASOPHILS % (AUTO) 1 % (0-10); EOSINOPHILS # (AUTO) 0.3 10^3/uL (0.0-0.3); EOSINOPHILS % (AUTO) 6 % (0-10); HEMATOCRIT 46 % (40-54); HEMOGLOBIN 14.5 g/dL (13.3-17.7); LYMPHOCYTES # (AUTO) 0.6 10^3/uL (1.0-4.0); LYMPHOCYTES % (AUTO) 13 % (12-44); MEAN CORPUSCULAR HEMOGLOBIN 27 pg (25-34); MEAN CORPUSCULAR HGB CONC 31 g/dL (32-36); MEAN CORPUSCULAR VOLUME 86 fL (80-99); MEAN PLATELET VOLUME 9.3 fL (9.0-12.2); MONOCYTES # (AUTO) 0.5 10^3/uL (0.0-1.0); MONOCYTES % (AUTO) 11 % (0-12); NEUTROPHILS # (AUTO) 3.1 10^3/uL (1.8-7.8); NEUTROPHILS % (AUTO) 69 % (42-75); PLATELET COUNT 240 10^3/uL (130-400); WHITE BLOOD COUNT 4.6 10^3/uL (4.3-11.0)
[2023-01-26 10:51] LABS: ALBUMIN 4.2 GM/DL (3.2-4.5); BILIRUBIN,TOTAL 0.6 MG/DL (0.1-1.0); CREATININE SERUM 1.69 MG/DL (0.60-1.30); POTASSIUM 4.1 MMOL/L (3.6-5.0); TOTAL PROTEIN 7.4 GM/DL (6.4-8.2)
[~2023-02-02 11:05] MED LIST changes: -CENTER ONLY IV SCH; -FERRIC CARBOXYMALTOSE IV SCH; -MECL-149 PO; +MECL-291 PO; -NS IV 500 ML (CANCER CENTER) IV SCH; -NS IV SCH
== END 2023-02-22 | disposition home or self-care (01) ==
LOC: ONC 11:05
PROVIDERS: ATTEND Internal Medicine Hematology & Oncology
DX: C20 Malignant neoplasm of rectum (principal); K44.9 Diaphragmatic hernia without obstruction or gangrene; D64.9 Anemia, unspecified; F32.A Depression, unspecified
CPT/HCPCS: 36415; 80053; 82728; 83540; 83550; 85025; 99214